=== PATIENT | male | born 1940 | race Caucasian/White ===

== ENCOUNTER 2016-10-10 08:53 | Inpatient (IN) | payer OTHER ==
--- NOTE | 2016-10-10 09:11 | PDOC ---
History of Present Illness - General History Source: Patient, Family (Daughter in law ) Exam Limitations: No Limitations - History of Present Illness Initial Comments: 10/10/16 09:29 The patient is a 76 year old male presenting with daughter in law, with a significant past medical history of an CHF, who presents to the emergency department with shortness of breath for the past 3 weeks. The patient notes that recently arrived from [facility], where he was hospitalized due to CHF for 4 days. Upon discharged and improvement of symptoms the patient came back to the [facility] and has been here for 3 weeks since arrival. He notes that he has not been taking his Lasix medications for the past 4 days because he ran out. He also notes that he experienced mild chest discomfort yesterday that resolved on its own. 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 The patient denies headache and dizziness. Denies fever, chills, nausea, vomit, diarrhea and constipation. Denies dysuria, frequency, urgency and hematuria. Allergies: None Past surgical history: Possible cardiac stents Social history: No alcohol, tobacco or drug use reported PMD - Dr. Vargas <Eduin Buitrago - Last Filed: 10/10/16 10:45> <Sherwin Petersen - Last Filed: 10/10/16 10:55> - General Chief Complaint: Shortness of Breath Stated Complaint: SOB Time Seen by Provider: 10/10/16 09:11 Past History <Eduin Buitrago - Last Filed: 10/10/16 10:45> - Past Medical History Cardiac Disorders: Yes ("enlarged heart") Other medical history: "stent"? - Surgical History Abdominal Surgery: Yes ("hernia?") - Psycho/Social/Smoking Cessation Hx Anxiety: No Suicidal Ideation: No Smoking History: Former smoker Have you smoked in the past 12 months: No If you are a former smoker, when did you quit?: 15 years ago Information on smoking cessation initiated: No Hx Alcohol Use: No Drug/Substance Use Hx: No Substance Use Type: None <Sherwin Petersen - Last Filed: 10/10/16 10:55> - Past Medical History Allergies/Adverse Reactions: Allergies Allergy/AdvReac Type Severity Reaction Status Date / Time No Known Allergies Allergy Verified 10/10/16 08:57 Home Medications: Ambulatory Orders Aspirin [ASA -] 81 mg PO DAILY 10/10/16 Atorvastatin Ca [Lipitor] 20 mg PO HS 10/10/16 Cardiatone 25mg 25 mg PO DAILY 10/10/16 Clopidogrel Bisulfate [Plavix -] 75 mg PO DAILY 10/10/16 Digoxin [Lanoxin -] 0.25 mg PO DAILY 10/10/16 Furosemide [Lasix] 40 mg PO DAILY 10/10/16 Review of Systems - Review of Systems Able to Perform ROS?: Yes Comments:: 10/10/16 09:29 GENERAL/CONSTITUTIONAL: No fever or chills. No weakness. HEAD, EYES, EARS, NOSE AND THROAT: No change in vision. No ear pain or discharge. No sore throat. CARDIOVASCULAR: +Shortness of breath. No chest pain RESPIRATORY: No cough, wheezing, or hemoptysis. GASTROINTESTINAL: No nausea, vomiting, diarrhea or constipation. GENITOURINARY: No dysuria, frequency, or change in urination. MUSCULOSKELETAL: No joint or muscle swelling or pain. No neck or back pain. SKIN: No rash NEUROLOGIC: No headache, vertigo, loss of consciousness, or change in strength/ sensation. ENDOCRINE: No increased thirst. No abnormal weight change HEMATOLOGIC/LYMPHATIC: No anemia, easy bleeding, or history of blood clots. ALLERGIC/IMMUNOLOGIC: No hives or skin allergy. <Eduin Buitrago - Last Filed: 10/10/16 10:45> *Physical Exam - Vital Signs Last Vital Signs Temp Pulse Resp BP Pulse Ox 97.3 F L 48 L 20 129/75 99 10/10/16 08:58 10/10/16 08:58 10/10/16 08:58 10/10/16 08:58 10/10/16 08:58 - Physical Exam Comments: 10/10/16 09:28 GENERAL: Awake, alert, and fully oriented, in no acute distress HEAD: No signs of trauma, normocephalic, atraumatic EYES: PERRLA, EOMI, sclera anicteric, conjunctiva clear ENT: Auricles normal inspection, hearing grossly normal, nares patent, oropharynx clear without exudates. Moist mucosa NECK: +Positive JVD. Normal ROM, supple, no lymphadenopathy, or masses LUNGS: +Rales bilaterally. No distress, speaks full sentences. HEART: Regular rate and rhythm, normal S1 and S2, no murmurs, rubs or gallops, peripheral pulses normal and equal bilaterally. ABDOMEN: Soft, nontender, normoactive bowel sounds. No guarding, no rebound. No masses EXTREMITIES: Normal inspection, Normal range of motion, no edema. No clubbing or cyanosis. NEUROLOGICAL: Cranial nerves II through XII grossly intact. Normal speech, normal gait, no focal sensorimotor deficits SKIN: Warm, Dry, normal turgor, no rashes or lesions noted. <Eduin Buitrago - Last Filed: 10/10/16 10:45> - Vital Signs Last Vital Signs Temp Pulse Resp BP Pulse Ox 97.3 F L 48 L 20 129/75 99 10/10/16 08:58 10/10/16 08:58 10/10/16 08:58 10/10/16 08:58 10/10/16 08:58 <Sherwin Petersen - Last Filed: 10/10/16 10:55> ED Treatment Course - LABORATORY CBC & Chemistry Diagram: 10/10/16 09:36 10/10/16 09:36 - RADIOLOGY Radiograph Interpretation: 10/10/16 10:45 Chest X-Ray Reviewed by: Dr. Isela Mckee Impression: Increased interstitial lung markings without focal infiltrate seen. No prior studies available for comparison to ascertain whether this is chronic in nature. <Eduin Buitrago - Last Filed: 10/10/16 10:45> - LABORATORY CBC & Chemistry Diagram: 10/10/16 09:36 10/10/16 09:36 <Sherwin Petersen - Last Filed: 10/10/16 10:55> *DC/Admit/Observation/Transfer - Attestations Scribe Attestion: 10/10/16 09:28 Documentation prepared by Eduin Buitrago, acting as medical chemist for Sherwin Petersen MD <Eduin Buitrago - Last Filed: 10/10/16 10:45> - Discharge Dispostion Admit: Yes - Attestations Physician Attestion: 10/10/16 09:11 I, Dr. Sherwni Petersen, attest that this document has been prepared under my direction and personally reviewed by me in its entirety. I further attest, that it accurately reflects all work, treatment, procedures and medical decision -making performed by me. <Sherwin Petersen - Last Filed: 10/10/16 10:55> Diagnosis at time of Disposition: Acute on chronic congestive heart failure Qualifiers: Congestive heart failure type: combined Qualified Code(s): I50.43 - Acute on chronic combined systolic (congestive) and diastolic (congestive) heart failure - Discharge Dispostion Condition at time of disposition: Improved
[2016-10-10] MEDS ORDERED: ALBUTEROL SO4 2.5/IPRATROPIUM 0.5 INH SOL 3 ML VIAL.NEB. NEB ONE (09:28)
[2016-10-10] MEDS ORDERED: FUROSEMIDE 40 MG/4 ML INJECTABLE VIAL IVPUSH ONE (09:33)
[2016-10-10 09:57] LABS: BASOPHIL 0.5 % (0-2.0); EOSINOPHIL 3.4 % (0-4.5); MCH 29.2 pg (25.7-33.7); MEAN CELL VOLUME 88.5 fl (80-96); MEAN PLT VOLUME 10.1 fl (7.5-11.1); NEUTROPHILS 64.8 % (42.8-82.8); PLATELET COUNT 175 K/MM3 (134-434); RDW 15.2 % (11.9-15.9); WHITE BLOOD COUNT 9.2 K/mm3 (4.0-10.0)
[2016-10-10] MEDS ORDERED: FUROSEMIDE 40 MG/4 ML INJECTABLE VIAL ONE (10:04)
[2016-10-10 10:40] LABS: INR 1.06 (0.82-1.09); PROTHROMBIN TIME (PATIENT) 11.7 SEC (9.98-11.88)
[2016-10-10 10:43] LABS: ALBUMIN 3.8 g/dl (3.4-5.0); ANION GAP 8 (8-16); BILIRUBIN,TOTAL 0.9 mg/dL (0.2-1.0); CALCIUM 9.1 mg/dL (8.5-10.1); CO2 27 mmol/L (21-32); CREATININE 0.8 mg/dL (0.7-1.3); GLUCOSE,RANDOM 101 mg/dL (74-106); MAGNESIUM 2.2 mg/dL (1.8-2.4); SGOT/AST 17 U/L (15-37); SGPT/ALT 24 U/L (12-78)
[2016-10-10 10:46] LABS: ALK PHOS 99 U/L (45-117); TROPONIN I < 0.02 ng/ml (0.00-0.05)
[2016-10-10] MEDS ORDERED: ACETAMINOPHEN 325 MG TABLET (FP) PO PRN (11:22)
[2016-10-10] MEDS ORDERED: ONDANSETRON 4 MG/2 ML VIAL IVPB PRN (11:22)
--- NOTE | 2016-10-10 11:27 | HP ---
PCP: None CHIEF COMPLAINT: Shortness of breath HISTORY OF PRESENT ILLNESS: This is a 76-year-old man who comes to the ER this morning complaining of shortness of breath. He had been hospitalized in the [place] last month for CHF. He has been in the [place] for the last 3 weeks. He has been becoming more short of breath during that time. He has noted swelling of his legs. He had an episode of chest pain yesterday. He denies fever , chills, cough, palpitations, diaphoresis, urinary frequency, nocturia, orthopnea, paroxysmal nocturnal dyspnea, weight gain. He ran out of his medication 4 days ago. PAST MEDICAL HISTORY CHF CAD PAST SURGICAL HISTORY Cardiac stents Hernia repair Allergies No Known Allergies Allergy (Verified 10/10/16 08:57) HOME MEDICATIONS 3 Medication Instructions Recorded Aspirin [ASA -] 81 mg PO DAILY 10/10/16 Atorvastatin Ca [Lipitor] 20 mg PO HS 10/10/16 Cardiatone 25mg 25 mg PO DAILY 10/10/16 Carvedilol 25 mg PO BID 10/10/16 Clopidogrel Bisulfate [Plavix -] 75 mg PO DAILY 10/10/16 Digoxin [Lanoxin -] 0.25 mg PO DAILY 10/10/16 Furosemide [Lasix] 40 mg PO DAILY 10/10/16 Social History: Smoking: Quit smoking 15 years ago Alcohol: Denies Drugs: Denies Recent Travel: [facility] 1 month ago Family History: Denies REVIEW OF SYSTEMS CONSTITUTIONAL: Absent: fever, chills, diaphoresis, generalized weakness, malaise, loss of appetite, weight change HEENT: Absent: rhinorrhea, nasal congestion, throat pain, throat swelling, difficulty swallowing, mouth swelling, ear pain, eye pain, visual changes CARDIOVASCULAR: Present: chest pain, peripheral edema. Absent: syncope, palpitations, lightheadedness RESPIRATORY: Present: shortness of breath. Absent: cough, orthopnea, wheezing, stridor, hemoptysis GASTROINTESTINAL: Absent: abdominal pain, abdominal distension, nausea, vomiting , diarrhea, constipation, melena, hematochezia GENITOURINARY: Absent: dysuria, frequency, urgency, hesitancy, hematuria, flank pain MUSCULOSKELETAL: Absent: myalgia, arthralgia, joint swelling, back pain, neck pain SKIN: Absent: rash, itching, pallor HEMATOLOGIC/IMMUNOLOGIC: Absent: easy bleeding, easy bruising, lymphadenopathy, frequent infections ENDOCRINE: Absent: unexplained weight gain, unexplained weight loss, heat intolerance, cold intolerance NEUROLOGIC: Absent: headache, focal weakness, paresthesias, dizziness, unsteady gait, seizure, mental status changes, bladder or bowel incontinence PSYCHIATRIC: Absent: anxiety, depression, suicidal or homicidal ideation, hallucinations. PHYSICAL EXAMINATION Vital Signs Period Temp Pulse Resp BP Sys/Paris Pulse Ox Last 24 Hr 97.3 F 48-70 18-20 113-129/72-75 99-99 GENERAL: Awake, alert, and fully oriented, in no acute distress. HEAD: Normal with no signs of trauma. EYES: Pupils equal, round and reactive to light, extraocular movements intact, sclerae anicteric, conjunctivae clear. EARS, NOSE, THROAT: Ears normal, nares patent, oropharynx clear without exudates. Moist mucous membranes. NECK: Normal range of motion, supple without lymphadenopathy, JVD, or masses. LUNGS: Few crackles bilaterally. No accessory muscle use. HEART: Regular rate and rhythm, normal S1 and S2 without murmur, rub or gallop. ABDOMEN: Soft, nontender, not distended, normoactive bowel sounds, no guarding, no rebound, no masses. No hepatomegaly or splenomegaly. MUSCULOSKELETAL: Normal range of motion at all joints. No bony deformities or tenderness. No CVA tenderness. UPPER EXTREMITIES: 2+ pulses, warm, well-perfused. No cyanosis. No clubbing. No peripheral edema. LOWER EXTREMITIES: 2+ pulses, warm, well-perfused. No calf tenderness. Trace peripheral edema. NEUROLOGICAL: Cranial nerves II-XII intact. Normal speech. Gait not observed. PSYCHIATRIC: Cooperative. Good eye contact. Appropriate mood and affect. SKIN: Warm, dry, normal turgor, no rashes or lesions noted, normal capillary refill. Laboratory Tests 10/10/16 10/10/16 10/10/16 09:36 09:36 09:36 WBC 9.2 RBC 5.01 Hgb 14.6 Hct 44.4 MCV 88.5 MCHC 33.0 RDW 15.2 Plt Count 175 MPV 10.1 Neutrophils % 64.8 Lymphocytes % 24.2 Monocytes % 7.1 Eosinophils % 3.4 Basophils % 0.5 INR 1.06 Sodium 142 Potassium 4.3 Chloride 107 Carbon Dioxide 27 Anion Gap 8 BUN 15 Creatinine 0.8 Creat Clearance w eGFR > 60 Random Glucose 101 Calcium 9.1 Magnesium 2.2 Total Bilirubin 0.9 AST 17 ALT 24 Alkaline Phosphatase 99 Creatine Kinase 71 Troponin I < 0.02 B-Natriuretic Peptide 1524.21 H Total Protein 7.0 Albumin 3.8 Digoxin 10/10/16 09:36 WBC RBC Hgb Hct MCV MCHC RDW Plt Count MPV Neutrophils % Lymphocytes % Monocytes % Eosinophils % Basophils % INR Sodium Potassium Chloride Carbon Dioxide Anion Gap BUN Creatinine Creat Clearance w eGFR Random Glucose Calcium Magnesium Total Bilirubin AST ALT Alkaline Phosphatase Creatine Kinase Troponin I B-Natriuretic Peptide Total Protein Albumin Digoxin 0.1540 L EKG: Sinus rhythm, rate 73. PVCs. LAD. LVH with repolarization. Chest x-ray: Increased interstitial markings bilaterally. ASSESSMENT/PLAN: This is a 76-year-old man with a history of CAD, stents, CHF who presented to the ER with worsening shortness of breath. He ran out of medications 4 days ago. He was found to have BNP 1524, dig level 0.154. CXR shows increased interstitial markings bilaterally. 1. Acute on chronic heart failure, likely systolic - Continue Lasix IV - Daily weight - Monitor intake and output - Echocardiogram - Continue Coreg, Ramipril, Aldactone, Digoxin - Cardiology consult 2. Chest pain - Monitor on telemetry - Serial troponins 3. CAD, history of stents - Continue aspirin, Plavix, Coreg, Lipitor Problem List - Problem (1) Acute on chronic heart failure Code(s): I50.9 - HEART FAILURE, UNSPECIFIED (2) CAD (coronary artery disease) Code(s): I25.10 - ATHSCL HEART DISEASE OF [place] CORONARY ARTERY W/O ANG PCTRS (3) Chest pain Code(s): R07.9 - CHEST PAIN, UNSPECIFIED Visit type - Emergency Visit Emergency Visit: Yes ED Registration Date: 10/10/16 Care time: The patient presented to the Emergency Department on the above date and was hospitalized for further evaluation of their emergent condition. - New Patient This patient is new to me today: Yes Date on this admission: 10/10/16 - Critical Care Critical Care patient: No
--- NOTE | 2016-10-10 11:51 | EKG ---
Test Reason : Blood Pressure : / mmHG Vent. Rate : 073 BPM Atrial Rate : 073 BPM P-R Int : 176 ms QRS Dur : 144 ms QT Int : 426 ms P-R-T Axes : 031 -48 078 degrees QTc Int : 469 ms SINUS RHYTHM WITH OCCASIONAL PREMATURE VENTRICULAR COMPLEXES POSSIBLE LEFT ATRIAL ENLARGEMENT LEFT AXIS DEVIATION LEFT VENTRICULAR HYPERTROPHY WITH QRS WIDENING AND REPOLARIZATION ABNORMALITY ABNORMAL ECG NO PREVIOUS ECGS AVAILABLE Confirmed by SHEKHAR MOTT, CHING ([id number]) on 10/10/2016 11:50:43 AM Referred By: Confirmed By:CHING CORRIGAN MD
[2016-10-10] MEDS ORDERED: DIGOXIN 0.25 MG TABLET (FP) ONE (13:05)
[2016-10-10] MEDS ORDERED: CARVEDILOL 12.5 MG TABLET (FP) ONE (13:05)
[2016-10-10] MEDS: CARVEDILOL 25 MG TABLET (FP) PO SCH ×2 (13:14→21:15)
[2016-10-10] MEDS: DIGOXIN 0.25 MG TABLET (FP) PO SCH (13:14)
[2016-10-10] MEDS ORDERED: RAMIPRIL 5 MG CAPSULE (FP) ONE (13:19)
[2016-10-10] MEDS ORDERED: SPIRONOLACTONE 25 MG TABLET (FP) ONE (13:19)
[2016-10-10] MEDS: SPIRONOLACTONE 25 MG TABLET (FP) PO SCH (13:22)
[2016-10-10] MEDS: RAMIPRIL 5 MG CAPSULE (FP) PO SCH ×2 (13:23→21:13)
[2016-10-10 14:02] VITALS: BMI 28.4
[2016-10-10] MEDS ORDERED: PNEUMOC 13-VAL CONJ-DIP CRM/PF 0.5 ML DISP.SYRIN IM ONE (18:00)
[2016-10-10] MEDS ORDERED: HEPARIN NA (PORCINE) 5,000 UNITS/ML 1ML VIAL SQ SCH (18:00)
[2016-10-10] MEDS ORDERED: INFLUENZA VACCINE 45 MCG/0.5 ML (MDV 16-17) IM ONE (18:00)
[2016-10-10] MEDS: ATORVASTATIN CA 20 MG TABLET (FP) PO SCH (21:13)
[2016-10-10 21:59] LABS: TROPONIN I < 0.02 ng/ml (0.00-0.05)
[2016-10-11] MEDS: HEPARIN NA (PORCINE) 5,000 UNITS/ML 1ML VIAL SQ SCH ×3 (06:40→22:06)
[2016-10-11 07:25] LABS: BASOPHIL 0.7 % (0-2.0); EOSINOPHIL 4.5 % (0-4.5); MCH 29.1 pg (25.7-33.7); MCHC 33.1 g/dl (32.0-35.9); MEAN CELL VOLUME 88.1 fl (80-96); MEAN PLT VOLUME 10.1 fl (7.5-11.1); NEUTROPHILS 56.6 % (42.8-82.8); PLATELET COUNT 170 K/MM3 (134-434); RDW 15.3 % (11.9-15.9); WHITE BLOOD COUNT 6.3 K/mm3 (4.0-10.0)
[2016-10-11 09:37] LABS: ANION GAP 13 (8-16); CALCIUM 8.8 mg/dL (8.5-10.1); CO2 22 mmol/L (21-32); CREATININE 0.8 mg/dL (0.7-1.3); GLUCOSE,RANDOM 97 mg/dL (74-106); MAGNESIUM 2.1 mg/dL (1.8-2.4)
--- NOTE | 2016-10-11 09:40 | CON.CARD ---
Consult Consult Specialty:: Cardiology Reason for Consultation:: chest pain - History of Present Illness History of Present Illness: The patient is a 76 year old male presenting with daughter in law, with a significant past medical history of an CHF, who presents to the emergency department with shortness of breath for the past 3 weeks. The patient notes that recently arrived from [facility], where he was hospitalized due to CHF for 4 days. Upon discharged and improvement of symptoms the patient came back to the [facility] and has been here for 3 weeks since arrival. He notes that he has not been taking his Lasix medications for the past 4 days because he ran out. He also notes that he experienced mild chest discomfort yesterday that resolved on its own. 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 The patient denies headache and dizziness. Denies fever, chills, nausea, vomit, diarrhea and constipation. Denies dysuria, frequency, urgency and hematuria. Allergies: None Past surgical history: Possible cardiac stents Social history: No alcohol, tobacco or drug use reported PMD - Dr. Vargas - History Source History Provided By: Patient, Family Member, Medical Record - Past Medical History Cardio/Vascular: Yes: CAD, HTN - Alcohol/Substance Use Hx Alcohol Use: No - Smoking History Smoking history: Former smoker Have you smoked in the past 12 months: No If you are a former smoker, when did you quit?: 15 years ago Home Medications - Allergies Allergies/Adverse Reactions: Allergies Allergy/AdvReac Type Severity Reaction Status Date / Time No Known Allergies Allergy Verified 10/10/16 08:57 - Home Medications Home Medications: Ambulatory Orders Aspirin [ASA -] 81 mg PO DAILY 10/10/16 Atorvastatin Ca [Lipitor] 20 mg PO HS 10/10/16 Carvedilol 25 mg PO BID 10/10/16 Clopidogrel Bisulfate [Plavix -] 75 mg PO DAILY 10/10/16 Digoxin [Lanoxin -] 0.25 mg PO DAILY 10/10/16 Furosemide [Lasix] 40 mg PO DAILY 10/10/16 Ramipril 10 mg PO BID 10/10/16 Spironolactone [Aldactone] 25 mg PO DAILY 10/10/16 Review of Systems - Review of Systems Constitutional: reports: No Symptoms Eyes: reports: No Symptoms HENT: reports: No Symptoms Neck: reports: No Symptoms Cardiovascular: reports: Chest Pain, Shortness of Breath Gastrointestinal: reports: No Symptoms Genitourinary: reports: No Symptoms Breasts: reports: No Symptoms Reported Musculoskeletal: reports: No Symptoms Integumentary: reports: No Symptoms Neurological: reports: No Symptoms Endocrine: reports: No Symptoms Hematology/Lymphatic: reports: No Symptoms Psychiatric: reports: No Symptoms Vital Signs: Vital Signs Temperature 98.5 F 10/11/16 06:00 Pulse Rate 58 L 10/11/16 06:00 Respiratory Rate 20 10/11/16 06:00 Blood Pressure 108/60 10/11/16 06:00 O2 Sat by Pulse Oximetry (%) 98 10/10/16 21:00 Constitutional: Yes: Well Nourished, No Distress, Calm Eyes: Yes: WNL, Conjunctiva Clear, EOM Intact HENT: Yes: WNL, Atraumatic, Normocephalic Neck: Yes: WNL, Supple, Trachea Midline Respiratory: Yes: WNL, Regular, CTA Bilaterally Gastrointestinal: Yes: WNL, Normal Bowel Sounds Renal/: Yes: WNL Cardiovascular: Yes: WNL, Regular Rate and Rhythm Musculoskeletal: Yes: WNL Extremities: Yes: WNL Integumentary: Yes: WNL Neurological: Yes: WNL, Alert, Oriented ...Motor Strength: WNL Psychiatric: Yes: WNL, Alert, Oriented - Other Data Labs, Other Data: CBC, BMP 10/11/16 05:35 10/11/16 05:35 INR, PTT INR 1.06 (0.82-1.09) 10/10/16 09:36 Troponin, BNP 10/10/16 10/11/16 20:40 06:30 Troponin I < 0.02 Cancelled Troponin, BNP 10/10/16 10/11/16 20:40 06:30 Troponin I < 0.02 Cancelled Laboratory Tests 10/10/16 10/10/16 10/10/16 09:36 09:36 09:36 WBC 9.2 RBC 5.01 Hgb 14.6 Hct 44.4 MCV 88.5 MCHC 33.0 RDW 15.2 Plt Count 175 MPV 10.1 Neutrophils % 64.8 Lymphocytes % 24.2 Monocytes % 7.1 Eosinophils % 3.4 Basophils % 0.5 INR 1.06 Sodium 142 Potassium 4.3 Chloride 107 Carbon Dioxide 27 Anion Gap 8 BUN 15 Creatinine 0.8 Creat Clearance w eGFR > 60 Random Glucose 101 Calcium 9.1 Magnesium 2.2 Total Bilirubin 0.9 AST 17 ALT 24 Alkaline Phosphatase 99 Creatine Kinase 71 Troponin I < 0.02 B-Natriuretic Peptide 1524.21 H Total Protein 7.0 Albumin 3.8 Digoxin 10/10/16 10/10/16 10/11/16 09:36 20:40 05:35 WBC 6.3 D RBC 4.57 Hgb 13.3 Hct 40.3 MCV 88.1 MCHC 33.1 RDW 15.3 Plt Count 170 MPV 10.1 Neutrophils % 56.6 Lymphocytes % 29.5 D Monocytes % 8.7 Eosinophils % 4.5 Basophils % 0.7 INR Sodium Potassium Chloride Carbon Dioxide Anion Gap BUN Creatinine Creat Clearance w eGFR Random Glucose Calcium Magnesium Total Bilirubin AST ALT Alkaline Phosphatase Creatine Kinase 50 Troponin I < 0.02 B-Natriuretic Peptide Total Protein Albumin Digoxin 0.1540 L 10/11/16 10/11/16 05:35 06:30 WBC RBC Hgb Hct MCV MCHC RDW Plt Count MPV Neutrophils % Lymphocytes % Monocytes % Eosinophils % Basophils % INR Sodium 144 Potassium 4.0 Chloride 109 H Carbon Dioxide 22 Anion Gap 13 BUN 17 Creatinine 0.8 Creat Clearance w eGFR Random Glucose 97 Calcium 8.8 Magnesium 2.1 Total Bilirubin AST ALT Alkaline Phosphatase Creatine Kinase 43 Cancelled Troponin I < 0.02 Cancelled B-Natriuretic Peptide Total Protein Albumin Digoxin Imaging - Results EKG: Image Reviewed (sr incomplete lbbb) Problem List - Problems (1) Acute on chronic heart failure Code(s): I50.9 - HEART FAILURE, UNSPECIFIED (2) CAD (coronary artery disease) Code(s): I25.10 - ATHSCL HEART DISEASE OF [place] CORONARY ARTERY W/O ANG PCTRS (3) CHF exacerbation Code(s): I50.9 - HEART FAILURE, UNSPECIFIED Qualifiers: Congestive heart failure type: combined (4) Chest pain Code(s): R07.9 - CHEST PAIN, UNSPECIFIED Assessment/Plan chf systolic severely dilated lv extremely poor informant ( son denies any heart problems /stents mis etc) htn hld moderate mr cont iv lasix may need c.cath/ICD when hemodynamicaly stable
[2016-10-11] MEDS: DIGOXIN 0.25 MG TABLET (FP) PO SCH (09:45)
[2016-10-11] MEDS: ASPIRIN 81 MG CHEWABLE TABLETS PO SCH (09:45)
[2016-10-11] MEDS: RAMIPRIL 5 MG CAPSULE (FP) PO SCH ×2 (09:46→22:04)
[2016-10-11] MEDS: CLOPIDOGREL BISULFATE 75 MG TABLET (FP) PO SCH (09:47)
[2016-10-11] MEDS: SPIRONOLACTONE 25 MG TABLET (FP) PO SCH (09:47)
[2016-10-11] MEDS: FUROSEMIDE 40 MG/4 ML INJECTABLE VIAL IVPUSH SCH (09:47)
[2016-10-11] MEDS: CARVEDILOL 25 MG TABLET (FP) PO SCH ×2 (09:47→22:04)
[2016-10-11 10:23] LABS: TROPONIN I < 0.02 ng/ml (0.00-0.05)
--- NOTE | 2016-10-11 13:21 | PN ---
Physical Exam: SUBJECTIVE: Patient seen and examined on tele. He says he is feeling better today, he is laying flat w/o any respiratory distress, no cough, no tachypnea, son at bedside. OBJECTIVE: Vital Signs Period Temp Pulse Resp BP Sys/Paris Pulse Ox Last 24 Hr 97.6 F-98.8 F 57-76 18-20 103-114/49-77 91-99 PE Neuro: alert, awake, cn 2-12intact Pulm: course bases otherwise clear CV: s1 s2 rrr no mrg Abd: s nt nd + bs Ext: no le edema, warm MSK: R posterior thigh tenderness Laboratory Results - last 24 hr 10/10/16 10/11/16 10/11/16 20:40 05:35 05:35 WBC 6.3 D RBC 4.57 Hgb 13.3 Hct 40.3 MCV 88.1 MCHC 33.1 RDW 15.3 Plt Count 170 MPV 10.1 Neutrophils % 56.6 Lymphocytes % 29.5 D Monocytes % 8.7 Eosinophils % 4.5 Basophils % 0.7 Sodium 144 Potassium 4.0 Chloride 109 H Carbon Dioxide 22 Anion Gap 13 BUN 17 Creatinine 0.8 Random Glucose 97 Calcium 8.8 Magnesium 2.1 Creatine Kinase 50 43 Troponin I < 0.02 < 0.02 10/10/16 09:36 Digoxin 0.1540 L Active Medications Generic Name Dose Route Start Last Admin Trade Name Freq PRN Reason Stop Dose Admin Acetaminophen 650 mg 10/10/16 11:22 Tylenol - PO Q4H PRN FEVER OR PAIN Aspirin 81 mg 10/11/16 10:00 10/11/16 09:45 Asa - PO 81 mg DAILY SIMÓN Administration Atorvastatin Calcium 20 mg 10/10/16 22:00 10/10/16 21:13 Lipitor - PO 20 mg HS SIMÓN Administration Carvedilol 25 mg 10/10/16 12:15 10/11/16 09:47 Coreg - PO 25 mg BID SIMÓN Administration Clopidogrel Bisulfate 75 mg 10/11/16 10:00 10/11/16 09:47 Plavix - PO 75 mg DAILY SIMÓN Administration Digoxin 0.25 mg 10/10/16 11:30 10/11/16 09:45 Lanoxin - PO 0.25 mg DAILY SIMÓN Administration Furosemide 40 mg 10/11/16 10:00 10/11/16 09:47 Lasix Injection - IVPUSH 40 mg DAILY SIMÓN Administration Heparin Sodium (Porcine) 5,000 unit 10/11/16 06:00 10/11/16 06:40 Heparin - SQ 5,000 unit TID SIMÓN Administration Ondansetron HCl 4 mg 10/10/16 11:22 Zofran Injection IVPB Q6H PRN NAUSEA Ramipril 10 mg 10/10/16 12:15 10/11/16 09:46 Altace - PO 10 mg BID SIMÓN Administration Spironolactone 25 mg 10/10/16 11:30 10/11/16 09:47 Aldactone - PO 25 mg DAILY SIMÓN Administration Imaging: - CXR 10/11: Increased interstitial markings bilaterally Assessment: 76 year old male with pmhx of CAD, stents, CHF admitted with worsening shortness of breath. He ran out of medications 4 days ago. He was found to have BNP 1524, dig level 0.154. CXR shows increased interstitial markings bilaterally. 1. Systolic acute on chronic HF - ECHO shows severely dilated LV, LVSF severely reduced, global hypokinesis of LV, mild TR, mod MR - Continue IV lasix 40mg daily - Coreg 25mg BID - Ramipril 10mg BID - Spironolactone 25mg daily - Digoxin 0.25mg - Daily weights, I's/O's - When stable will likely need cath and ICD per cardiology 2. Chest pain - r/o [place] trops x3 negative 3. CAD, history of stents - Continue ASA, Plavix,Lipitor 4. DVT ppx - Heparin sq q8 Visit type - Emergency Visit Emergency Visit: Yes ED Registration Date: 10/10/16 Care time: The patient presented to the Emergency Department on the above date and was hospitalized for further evaluation of their emergent condition. - New Patient This patient is new to me today: Yes Date on this admission: 10/11/16 - Critical Care Critical Care patient: No
[2016-10-11 15:33] LABS: TROPONIN I < 0.02 ng/ml (0.00-0.05)
[2016-10-11] MEDS: ATORVASTATIN CA 20 MG TABLET (FP) PO SCH (22:03)
[2016-10-11 22:14] LABS: TROPONIN I < 0.02 ng/ml (0.00-0.05)
[2016-10-12] MEDS: HEPARIN NA (PORCINE) 5,000 UNITS/ML 1ML VIAL SQ SCH ×3 (06:43→21:51)
--- NOTE | 2016-10-12 08:02 | PN ---
Progress Note, Physician Chief Complaint: Pt A&Ox3; no chest pain or dyspnea. History of Present Illness: The patient is a 76 year old male presenting with daughter in law, with a significant past medical history of CHF, who presents to the emergency department with shortness of breath for the past 3 weeks. The patient notes that recently arrived from [facility], where he was hospitalized due to CHF for 4 days. Upon discharged and improvement of symptoms the patient came back to the [facility]. He notes that he has not been taking his Lasix for the past 4 days because he ran out. He also notes that he experienced mild chest discomfort yesterday that resolved on its own. 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 The patient denies headache and dizziness. Denies fever, chills, nausea, vomit, diarrhea and constipation. Denies dysuria, frequency, urgency and hematuria. Allergies: None Past surgical history: Possible cardiac stents Social history: No alcohol, tobacco or drug use reported PMD - Dr. Vargas - Current Medication List Current Medications: Active Medications Acetaminophen (Tylenol -) 650 mg PO Q4H PRN PRN Reason: FEVER OR PAIN Aspirin (Asa -) 81 mg PO DAILY [facility] Last Admin: 10/11/16 09:45 Dose: 81 mg Atorvastatin Calcium (Lipitor -) 20 mg PO HS [facility] Last Admin: 10/11/16 22:03 Dose: 20 mg Carvedilol (Coreg -) 25 mg PO BID [facility] Last Admin: 10/11/16 22:04 Dose: 25 mg Clopidogrel Bisulfate (Plavix -) 75 mg PO DAILY [facility] Last Admin: 10/11/16 09:47 Dose: 75 mg Digoxin (Lanoxin -) 0.25 mg PO DAILY [facility] Last Admin: 10/11/16 09:45 Dose: 0.25 mg Furosemide (Lasix Injection -) 40 mg IVPUSH DAILY [facility] Last Admin: 10/11/16 09:47 Dose: 40 mg Heparin Sodium (Porcine) (Heparin -) 5,000 unit SQ TID [facility] Last Admin: 10/12/16 06:43 Dose: 5,000 unit Ondansetron HCl (Zofran Injection) 4 mg IVPB Q6H PRN PRN Reason: NAUSEA Ramipril (Altace -) 10 mg PO BID [facility] Last Admin: 10/11/16 22:04 Dose: 10 mg Spironolactone (Aldactone -) 25 mg PO DAILY [facility] Last Admin: 10/11/16 09:47 Dose: 25 mg - Objective Vital Signs: Vital Signs Temperature 98 F 10/12/16 01:00 Pulse Rate 57 L 10/12/16 05:00 Respiratory Rate 20 10/12/16 05:00 Blood Pressure 103/61 10/12/16 05:00 O2 Sat by Pulse Oximetry (%) 96 10/11/16 21:00 Constitutional: Yes: Calm Eyes: Yes: WNL HENT: Yes: WNL Neck: Yes: WNL Cardiovascular: Yes: WNL Respiratory: Yes: Regular Genitourinary: No: Anuria Breast(s): Yes: WNL Musculoskeletal: Yes: WNL Extremities: Yes: WNL Edema: No Peripheral Pulses WNL: No Peripheral Pulses: Left Doralis Pedis: 1+, Right Dorsalis Pedis: 1+ Integumentary: Yes: WNL Neurological: Yes: Alert, Oriented Labs: CBC, BMP 10/11/16 05:35 INR, PTT INR 1.06 (0.82-1.09) 10/10/16 09:36 Abnormal Lab Results 10/11/16 10/12/16 05:35 05:35 Chloride 109 H BUN 26 H D Problem List - Problems (1) Acute on chronic systolic (congestive) heart failure Assessment/Plan: Continue Coreg, Aldactone, lisinopril, digoxin, and furosemide. On ASA and clopidgrel. ECHO: severely dilated LV; severely reduced LVEF. Will require right and left-heart coronry angiogram, and evaluation for ICD. This wa discussed with pt and son; he was apparently told he would need this workup and therapy in the [place] weeks ago. F/u TSH and lipids. Code(s): I50.23 - ACUTE ON CHRONIC SYSTOLIC (CONGESTIVE) HEART FAILURE
[2016-10-12 08:31] LABS: CALCIUM 8.9 mg/dL (8.5-10.1); CREATININE 0.9 mg/dL (0.7-1.3)
[2016-10-12] MEDS: RAMIPRIL 5 MG CAPSULE (FP) PO SCH ×2 (09:24→21:47)
[2016-10-12] MEDS: ASPIRIN 81 MG CHEWABLE TABLETS PO SCH (09:24)
[2016-10-12] MEDS: CLOPIDOGREL BISULFATE 75 MG TABLET (FP) PO SCH (09:24)
[2016-10-12] MEDS: CARVEDILOL 25 MG TABLET (FP) PO SCH ×2 (09:25→21:47)
[2016-10-12] MEDS: FUROSEMIDE 40 MG/4 ML INJECTABLE VIAL IVPUSH SCH (09:25)
[2016-10-12] MEDS: SPIRONOLACTONE 25 MG TABLET (FP) PO SCH (09:25)
[2016-10-12] MEDS: DIGOXIN 0.25 MG TABLET (FP) PO SCH (09:25)
[2016-10-12 10:54] LABS: THYROID STIMULATING HORMONE 4.05 uIU/ml (0.358-3.74)
--- NOTE | 2016-10-12 11:21 | PN ---
Physical Exam: SUBJECTIVE: Patient seen and examined on tele. He says he feels fine. Explained heart function to him and his son and purpose of transfer. He said he has a stent from a cath in [facility]. OBJECTIVE: Vital Signs Period Temp Pulse Resp BP Sys/Paris Pulse Ox Last 24 Hr 98 F-98.2 F 57-76 18-20 100-119/52-61 96 PE Neuro: alert, awake, cn 2-12intact Pulm: CTAB CV: s1 s2 rrr no mrg Abd: s nt nd + bs Ext: no le edema, warm Laboratory Results - last 24 hr 10/11/16 10/11/16 10/12/16 14:35 20:15 05:35 Sodium 142 Potassium 4.3 Chloride 105 Carbon Dioxide 27 D Anion Gap 10 BUN 26 H D Creatinine 0.9 Random Glucose 98 Calcium 8.9 Creatine Kinase 50 52 Troponin I < 0.02 < 0.02 Triglycerides 111 Cholesterol 175 Total LDL Cholesterol 122 H HDL Cholesterol 44 TSH 4.05 H 10/12/16 05:35 Free T4 1.07 Active Medications Generic Name Dose Route Start Last Admin Trade Name Freq PRN Reason Stop Dose Admin Acetaminophen 650 mg 10/10/16 11:22 Tylenol - PO Q4H PRN FEVER OR PAIN Aspirin 81 mg 10/11/16 10:00 10/12/16 09:24 Asa - PO 81 mg DAILY [facility] Administration Atorvastatin Calcium 20 mg 10/10/16 22:00 10/11/16 22:03 Lipitor - PO 20 mg HS [facility] Administration Carvedilol 25 mg 10/10/16 12:15 10/12/16 09:25 Coreg - PO 25 mg BID [facility] Administration Clopidogrel Bisulfate 75 mg 10/11/16 10:00 10/12/16 09:24 Plavix - PO 75 mg DAILY [facility] Administration Digoxin 0.25 mg 10/10/16 11:30 10/12/16 09:25 Lanoxin - PO 0.25 mg DAILY [facility] Administration Furosemide 40 mg 10/11/16 10:00 10/12/16 09:25 Lasix Injection - IVPUSH 40 mg DAILY [facility] Administration Heparin Sodium (Porcine) 5,000 unit 10/11/16 06:00 10/12/16 06:43 Heparin - SQ 5,000 unit TID [facility] Administration Ondansetron HCl 4 mg 10/10/16 11:22 Zofran Injection IVPB Q6H PRN NAUSEA Ramipril 10 mg 10/10/16 12:15 10/12/16 09:24 Altace - PO 10 mg BID [facility] Administration Spironolactone 25 mg 10/10/16 11:30 10/12/16 09:25 Aldactone - PO 25 mg DAILY [facility] Administration Imaging: - ECHO 10/10: severely dilated LV, LVSF severely reduced, global hypokinesis of LV, mild TR, mod MR Assessment: 76 year old male with pmhx of CAD, stents, CHF admitted with worsening shortness of breath. He ran out of medications 4 days ago. He was found to have BNP 1524, dig level 0.154. CXR shows increased interstitial markings bilaterally. 1. Systolic acute on chronic HF - Continue IV lasix 40mg daily - Coreg 25mg BID - Ramipril 10mg BID - Spironolactone 25mg daily - Digoxin 0.25mg - Elevated TSH, however T4 wnl - Daily weights, I's/O's 2. LVSF severely reduced - Will need right and left heart cath - D/w Cardiology, will arrange for transfer tomorrow to [place] 3. Chest pain - r/o [place] trops x3 negative 4. CAD, history of stents - Continue ASA, Plavix,Lipitor 5. DVT ppx - Heparin sq q8 Visit type - Emergency Visit Emergency Visit: Yes ED Registration Date: 10/10/16 Care time: The patient presented to the Emergency Department on the above date and was hospitalized for further evaluation of their emergent condition. - New Patient This patient is new to me today: No - Critical Care Critical Care patient: No
[2016-10-12 11:37] LABS: FREE T4 1.07 ng/dl (0.76-1.16)
[2016-10-12] MEDS: ATORVASTATIN CA 20 MG TABLET (FP) PO SCH (21:47)
[2016-10-13] MEDS: HEPARIN NA (PORCINE) 5,000 UNITS/ML 1ML VIAL SQ SCH (06:02)
--- NOTE | 2016-10-13 07:40 | DS ---
Physical Exam: SUBJECTIVE: Patient seen and examined. States no SOB, chest pain, palpitations. Denies dyspnea while at rest or walking short distances. OBJECTIVE: Vital Signs Period Temp Pulse Resp BP Sys/Paris Pulse Ox Last 24 Hr 97.4 F-98.6 F 53-64 18-22 100-135/53-72 96-96 PHYSICAL EXAM GENERAL: The patient is awake, alert, and fully oriented, in no acute distress. HEAD: Normal with no signs of trauma. EYES: PERRL, extraocular movements intact, sclera anicteric, conjunctiva clear. ENT: Ears normal, nares patent, oropharynx clear without exudates, moist mucous membranes. NECK: Trachea midline, full range of motion, supple. LUNGS: Breath sounds equal, clear to auscultation bilaterally, no wheezes, no crackles, no accessory muscle use. HEART: Regular rate and rhythm, S1, S2 without murmur, rub or gallop. ABDOMEN: Soft, nontender, nondistended, normoactive bowel sounds, no guarding, no rebound, no hepatosplenomegaly, no masses. EXTREMITIES: 2+ pulses, warm, well-perfused, trace edema bilaterally. No calf tenderness. NEUROLOGICAL: Cranial nerves II through XII grossly intact. Normal speech, gait not observed. PSYCH: Normal mood, normal affect. SKIN: Warm, dry, normal turgor, no rashes or lesions noted. LABS Laboratory Results - last 24 hr 10/12/16 10/12/16 10/12/16 05:35 06:00 06:00 Sodium 142 Potassium 4.3 Chloride 105 Carbon Dioxide 27 D Anion Gap 10 BUN 26 H D Creatinine 0.9 Random Glucose 98 Calcium 8.9 Triglycerides 111 Cancelled Cholesterol 175 Cancelled Total LDL Cholesterol 122 H Cancelled HDL Cholesterol 44 Cancelled TSH 4.05 H Cancelled Free T4 1.07 HOSPITAL COURSE: 76 year old M with PMH CHF, CAD, ?stent placement, and hernia repair admitted to hospital 10/10 after presenting with c/o SOB, swelling in legs , and one episode of chest pain the day before. BMP 1549 on admission. Troponins x 4 negative. Pt diuresed with IV Lasix, now reporting improved symptom relief. Transfer to [facility] for cardiac cath. Imaging: Echo 10/10/16: severely dilated and hypokinetic LV, mod MR, mild TR, mild AR, estimated EF 37%. EKG 10/10/16: NSR rate 73 with occasional PVCs and widened QRS interval. CXR 10/10/16: Mild cardiomegaly and pulmonary congestion noted. Plan: 1. Systolic Acute on Chronic HF - continue Aldactone 25mg PO daily - continue Lasix 40mg PO daily - continue Carvedilol 25mg PO daily - continue Ramipril 10mg PO daily - continue Digoxin 0.25mg PO daily - right and left heart cath today 10/[address] [facility] 2. CAD - continue ASA 81mg PO daily - continue Plavix 75mg PO daily 3. HLD - continue Atorvastatin 25mg PO qhs Condition: Stable Disposition: Transfer to [facility] for right and left heart cath and possible ICD placement. Date of Admission:10/10/16 Date of Discharge: 10/13/16 Minutes to complete discharge: 35 Discharge Summary Reason For Visit: ACUTE ON CHRONIC CHF Current Active Problems Acute on chronic heart failure (Acute) Acute on chronic systolic (congestive) heart failure (Acute) CAD (coronary artery disease) (Acute) CHF exacerbation (Acute) Chest pain (Acute) Condition: Guarded - Instructions Referrals: Chris Cabrales MD [Staff Physician] - Roni Gonzalez MD [Staff Physician] - Disposition: TRANSFER ACUTE CARE/OTHER HOSP - Home Medications Comprehensive Discharge Medication List: Ambulatory Orders Aspirin [ASA -] 81 mg PO DAILY 10/10/16 Atorvastatin Ca [Lipitor] 20 mg PO HS 10/10/16 Carvedilol 25 mg PO BID 10/10/16 Clopidogrel Bisulfate [Plavix -] 75 mg PO DAILY 10/10/16 Digoxin [Lanoxin -] 0.25 mg PO DAILY 10/10/16 Furosemide [Lasix] 40 mg PO DAILY 10/10/16 Ramipril 10 mg PO BID 10/10/16 Spironolactone [Aldactone] 25 mg PO DAILY 10/10/16 This patient is new to me today: Yes Date on this admission: 10/13/16 Emergency Visit: Yes ED Registration Date: 10/10/16 Care time: The patient presented to the Emergency Department on the above date and was hospitalized for further evaluation of their emergent condition. Critical Care patient: No - Discharge Referral Referred to [facility] Yes Physician Referral: Chris Genao MD ([facility])
[2016-10-13 08:24] VITALS: BP 104/78; TEMP 98.6
[2016-10-13] MEDS: ASPIRIN 81 MG CHEWABLE TABLETS PO SCH (08:28)
[2016-10-13] MEDS: DIGOXIN 0.25 MG TABLET (FP) PO SCH (08:29)
[2016-10-13] MEDS: RAMIPRIL 5 MG CAPSULE (FP) PO SCH (08:29)
[2016-10-13] MEDS: SPIRONOLACTONE 25 MG TABLET (FP) PO SCH (08:29)
[2016-10-13] MEDS: CARVEDILOL 25 MG TABLET (FP) PO SCH (08:29)
[2016-10-13] MEDS: CLOPIDOGREL BISULFATE 75 MG TABLET (FP) PO SCH (08:29)
[2016-10-13 08:30] VITALS: PULSE 60
--- NOTE | 2016-10-13 08:59 | PN ---
Progress Note, Physician Chief Complaint: Pt A&Ox3; no chest pain or dyspnea. No PND or orthopnea last night. History of Present Illness: The patient is a 76 year old male (fina. [place] [employer]) presenting with daughter in law, with a significant past medical history of CHF, who presents to the emergency department with shortness of breath for the past 3 weeks. The patient notes that recently arrived from [facility], where he was hospitalized due to CHF for 4 days. Upon discharged and improvement of symptoms the patient came back to the [facility]. He notes that he has not been taking his Lasix for the past 4 days because he ran out. He also notes that he experienced mild chest discomfort yesterday that resolved on its own. 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 The patient denies headache and dizziness. Denies fever, chills, nausea, vomit, diarrhea and constipation. Denies dysuria, frequency, urgency and hematuria. Allergies: None Past surgical history: Possible cardiac stents Social history: No alcohol, tobacco or drug use reported PMD - Dr. Vargas - Current Medication List Current Medications: Active Medications Acetaminophen (Tylenol -) 650 mg PO Q4H PRN PRN Reason: FEVER OR PAIN Aspirin (Asa -) 81 mg PO DAILY [facility] Last Admin: 10/13/16 08:28 Dose: 81 mg Atorvastatin Calcium (Lipitor -) 20 mg PO HS [facility] Last Admin: 10/12/16 21:47 Dose: 20 mg Carvedilol (Coreg -) 25 mg PO BID [facility] Last Admin: 10/13/16 08:29 Dose: 25 mg Clopidogrel Bisulfate (Plavix -) 75 mg PO DAILY [facility] Last Admin: 10/13/16 08:29 Dose: 75 mg Digoxin (Lanoxin -) 0.25 mg PO DAILY [facility] Last Admin: 10/13/16 08:29 Dose: 0.25 mg Furosemide (Lasix Injection -) 40 mg IVPUSH DAILY [facility] Last Admin: 10/12/16 09:25 Dose: 40 mg Heparin Sodium (Porcine) (Heparin -) 5,000 unit SQ TID [facility] Last Admin: 10/13/16 06:02 Dose: Not Given Ondansetron HCl (Zofran Injection) 4 mg IVPB Q6H PRN PRN Reason: NAUSEA Ramipril (Altace -) 10 mg PO BID [facility] Last Admin: 10/13/16 08:29 Dose: 10 mg Spironolactone (Aldactone -) 25 mg PO DAILY [facility] Last Admin: 10/13/16 08:29 Dose: 25 mg - Objective Vital Signs: Vital Signs Temperature 98.6 F 10/13/16 07:54 Pulse Rate 60 10/13/16 08:29 Respiratory Rate 20 10/13/16 07:54 Blood Pressure 104/78 10/13/16 07:54 O2 Sat by Pulse Oximetry (%) 97 10/13/16 07:54 Labs: CBC, BMP 10/11/16 05:35 10/12/16 05:35 INR, PTT INR 1.06 (0.82-1.09) 10/10/16 09:36 Problem List - Problems (1) Acute on chronic systolic (congestive) heart failure Assessment/Plan: Continue Coreg, Aldactone, lisinopril, digoxin, and furosemide. On ASA and clopidgrel. ECHO: severely dilated LV; severely reduced LVEF. Will require right and left-heart coronry angiogram, and evaluation for ICD. This wa discussed with pt and son; he was apparently told he would need this workup and therapy in the [place] weeks ago. Pt for transfer to [facility] today. Free T4 WNL; LDL elevated: statin. Code(s): I50.23 - ACUTE ON CHRONIC SYSTOLIC (CONGESTIVE) HEART FAILURE
== END 2016-10-13 09:15 | disposition short-term general hospital (02) | DRG 194 ==
LOC: JER 08:53 → JERBED 10:56 → J4W 14:13
PROVIDERS: ADMIT Internal Medicine; ATTEND Registered Nurse Emergency
DX: I11.0 Hypertensive heart disease with heart failure (principal); I50.23 Acute on chronic systolic (congestive) heart failure; I25.10 Atherosclerotic heart disease of native coronary artery without angina pectoris; Z95.5 Presence of coronary angioplasty implant and graft; I34.0 Nonrheumatic mitral (valve) insufficiency
CPT/HCPCS: 36415; 71020-TC; 80048; 80053; 80061; 80162; 82550; 83721; 83735; 83880; 84439; 84443; 84484; 85025; 85610; 90670; 93005; 93010; 93306-TC; 97116-GP; 97161-GP; 99284-25; G0008; G0009; J1644; Q2037

== ENCOUNTER 2016-10-23 16:24 | Emergency (ER) | payer OTHER ==
[2016-10-23 16:46] VITALS: TEMP 98.4; BMI 28.4
--- NOTE | 2016-10-23 16:58 | PDOC ---
History of Present Illness - General Chief Complaint: Urinary Problem Stated Complaint: URINARY PROBLEM/PAIN Time Seen by Provider: 10/23/16 16:57 History Source: Patient Exam Limitations: No Limitations - History of Present Illness Initial Comments: 10/23/16 16:58 CHIEF COMPLAINT: Urinary symptoms HISTORY OF PRESENT ILLNESS: This is a 76 year old male with a history of CHF, CAD s/p recent cath 10/13, hernia repair, and "prostate problems" (denies hx cancer, has not seen a urologist in this country) who presents with one week of urinary retention/sensation of inability to void completely, followed by new urinary incontinence today. He denies fevers/chills, dysuria, hematuria, or any other symptoms. He is also complaining of low back pain radiating down the right hip which has been progressive for 2-3 months. REVIEW OF SYSTEMS: GENERAL/CONSTITUTIONAL: No fever or chills. No weakness. No weight change. HEAD, EYES, EARS, NOSE AND THROAT: No change in vision. No ear pain or discharge. No sore throat. CARDIOVASCULAR: No chest pain or palpitations. RESPIRATORY: No cough, wheezing, or shortness of breath. GASTROINTESTINAL: No nausea, vomiting, diarrhea or constipation. GENITOURINARY: See HPI. MUSCULOSKELETAL: Low back pain radiating down right hip. SKIN: No rash or easy bruising. NEUROLOGIC: No headache, vertigo, loss of consciousness, or loss of sensation. PSYCHIATRIC: No depression or anxiety. ENDOCRINE: No increased thirst. No abnormal weight change. HEMATOLOGIC/LYMPHATIC: No anemia, easy bleeding, or history of blood clots. ALLERGIC/IMMUNOLOGIC: No hives or skin allergy. No latex allergy. PHYSICAL EXAM: GENERAL: The patient is awake, alert, and fully oriented, in no acute distress. HEAD: Normal with no signs of trauma. ENT: Pupils equal, round and reactive to light, extraocular movements intact, sclera anicteric, conjunctiva clear. Neck supple. LUNGS: Clear to auscultation bilaterally. Normal excursion. No respiratory distress or use of accessory muscles. CV: RRR, S1/S2, no MRG. Cap refill < 2 sec. ABDOMEN: Soft, non-distended, non-tender. No flank tenderness. EXTREMITIES: Normal range of motion, no edema. 5/5 upper and lower extremity strength bilaterally. NEUROLOGICAL: Normal speech, normal gait. CN II-XII grossly intact. No focal lumbar tenderness. No saddle anesthesia. PSYCH: Normal mood, normal affect. SKIN: Warm, dry, normal turgor, no rashes or lesions noted. Past History - Past Medical History Allergies/Adverse Reactions: Allergies Allergy/AdvReac Type Severity Reaction Status Date / Time No Known Allergies Allergy Verified 10/23/16 18:55 Home Medications: Ambulatory Orders Aspirin [ASA -] 81 mg PO DAILY 10/10/16 Atorvastatin Ca [Lipitor] 20 mg PO HS 10/10/16 Carvedilol 25 mg PO BID 10/10/16 Clopidogrel Bisulfate [Plavix -] 75 mg PO DAILY 10/10/16 Digoxin [Lanoxin -] 0.25 mg PO DAILY 10/10/16 Furosemide [Lasix] 40 mg PO DAILY 10/10/16 Ramipril 10 mg PO BID 10/10/16 Spironolactone [Aldactone -] 25 mg PO DAILY 10/10/16 Ramipril [Altace] 10 mg PO BID 10/13/16 Cyclobenzaprine HCl [Flexeril 10 mg] 10 mg PO TID PRN #60 tablet 10/23/16 Cardiac Disorders: Yes ("enlarged heart") - Surgical History Abdominal Surgery: Yes ("hernia?") - Psycho/Social/Smoking Cessation Hx Anxiety: No Suicidal Ideation: No Smoking History: Never smoked Have you smoked in the past 12 months: No If you are a former smoker, when did you quit?: 15 years ago Hx Alcohol Use: No Drug/Substance Use Hx: No Substance Use Type: None *Physical Exam - Vital Signs Last Vital Signs Temp Pulse Resp BP Pulse Ox 98.4 F 70 18 152/68 96 10/23/16 16:44 10/23/16 16:44 10/23/16 16:44 10/23/16 16:44 10/23/16 16:44 Medical Decision Making - Medical Decision Making 10/23/16 18:01 A/P: 76 year old male with urinary retention/incontinence. Also complaining of low back pain. -UA/culture -Pelvic/bladder u/s -Suspect symptoms are related to BPH, however with complaint of low back pain for >6 wks, will also obtain CT lumbar spine -Ibuprofen/Flexeril for back pain 10/23/16 18:28 -UA negative for infection -Pelvic u/s shows enlarged prostate, no urinary retention 10/23/16 19:27 CT shows small to moderate L5/S1 herniation with moderate canal stenosis. Will dc with pain control, urology followup, PCP followup. Return precautions reviewed. *DC/Admit/Observation/Transfer Diagnosis at time of Disposition: Urinary incontinence due to benign prostatic hyperplasia - Discharge Dispostion Disposition: HOME Condition at time of disposition: Stable Admit: No - Prescriptions Prescriptions: Cyclobenzaprine HCl [Flexeril 10 mg] 10 mg PO TID PRN #60 tablet PRN Reason: Back Pain - Referrals Referrals: Lisa Wright MD [Staff Physician] - Call tomorrow (Primary care) Johnathan Hsu MD., [Staff Physician] - (Call tomorrow) - Patient Instructions Printed Discharge Instructions: DI for Urinary Incontinence, DI for Benign Prostatic Hyperplasia Additional Instructions: -Follow up with urology for further evaluation (referral enclosed) -Return here for any new or concerning symptoms Print Language: BELARUSIAN
[2016-10-23 17:48] LABS: URINE APPEARANCE CLEAR; URINE BILIRUBIN NEGATIVE (NEGATIVE); URINE BLOOD NEGATIVE (NEGATIVE); URINE COLOR LTYELLOW; URINE GLUCOSE (UA) NEGATIVE (NEGATIVE); URINE KETONE NEGATIVE (NEGATIVE); URINE LEUK ESTERASE NEGATIVE (NEGATIVE); URINE NITRITE NEGATIVE (NEGATIVE); URINE PROTEIN NEGATIVE (NEGATIVE); URINE UROBILINOGEN NEGATIVE E.U./dl (0.2-1.0)
[2016-10-23] MEDS ORDERED: CYCLOBENZAPRINE HCL 10 MG TABLET (FP) PO ONE (17:59)
[2016-10-23] MEDS ORDERED: IBUPROFEN 400 MG TABLET (FP) PO ONE ×2 (17:59→18:04)
[2016-10-23] MEDS ORDERED: CYCLOBENZAPRINE HCL 10 MG TABLET (FP) ONE (18:03)
[2016-10-23 19:38] VITALS: BP 118/61; PULSE 56
== END 2016-10-23 19:40 | disposition home or self-care (01) ==
LOC: JER 16:24
DX: N40.1 Benign prostatic hyperplasia with lower urinary tract symptoms (principal); N39.498 Other specified urinary incontinence; I25.10 Atherosclerotic heart disease of native coronary artery without angina pectoris; I11.0 Hypertensive heart disease with heart failure; Z95.5 Presence of coronary angioplasty implant and graft
CPT/HCPCS: 72131-TC; 76856-TC; 81003; 87086; 99283-25

== ENCOUNTER 2016-12-20 13:14 | Observation (INO) | payer OTHER ==
[2016-12-20 13:26] VITALS: BMI 28.4
--- NOTE | 2016-12-20 14:35 | PDOC ---
History of Present Illness - General History Source: Patient Exam Limitations: No Limitations - History of Present Illness Initial Comments: 12/20/16 14:46 The patient is a 76 year old male, with a significant past medical history of CHF, CAD s/p recent cath, and hernia repair who presents to the emergency department with SOB and dizziness for about 20 days. The patient reports his baseline is about 1 flight of steps before the onset of SOB, but notes recently having worsening Orthopnea more frequently over the past months. Patient was recently admitted in 09/2016 presenting with similar symptoms, where he was transferred to [facility] for a cardiac cath. He denies any recent fevers, chills , or headache. He denies any recent nausea, vomit, diarrhea or constipation. He denies any recent chest pain. Allergies: NKA Past surgical history: None reported. Social History: Nonsmoker. Denies EtOH use and recreational drug use. Primary Care Physician: <Jeffery Morris - Last Filed: 12/20/16 15:07> <Sundar Kirk - Last Filed: 12/20/16 16:56> - General Chief Complaint: Chest Pain Stated Complaint: CHEST PAIN Time Seen by Provider: 12/20/16 14:24 Past History <Jeffery Morris - Last Filed: 12/20/16 15:07> - Past Medical History Cardiac Disorders: Yes ("enlarged heart") Hypercholesterolemia: Yes Other medical history: PROSTATE PROBLEMS - Surgical History Abdominal Surgery: Yes ("hernia?") Cholecystectomy: Yes - Psycho/Social/Smoking Cessation Hx Anxiety: No Suicidal Ideation: No Smoking History: Never smoked Have you smoked in the past 12 months: No If you are a former smoker, when did you quit?: 15 years ago Hx Alcohol Use: No Drug/Substance Use Hx: No Substance Use Type: None <Sundar Kirk - Last Filed: 12/20/16 16:56> - Past Medical History Allergies/Adverse Reactions: Allergies Allergy/AdvReac Type Severity Reaction Status Date / Time No Known Allergies Allergy Verified 12/20/16 13:26 Home Medications: Ambulatory Orders Aspirin [ASA -] 81 mg PO DAILY 10/10/16 Atorvastatin Ca [Lipitor] 20 mg PO HS 10/10/16 Carvedilol 25 mg PO BID 10/10/16 Clopidogrel Bisulfate [Plavix -] 75 mg PO DAILY 10/10/16 Digoxin [Lanoxin -] 0.25 mg PO DAILY 10/10/16 Furosemide [Lasix] 40 mg PO DAILY 10/10/16 Ramipril 10 mg PO BID 10/10/16 Spironolactone [Aldactone -] 25 mg PO DAILY 10/10/16 Ramipril [Altace] 10 mg PO BID 10/13/16 Cyclobenzaprine HCl [Flexeril 10 mg] 10 mg PO TID PRN #60 tablet 10/23/16 Review of Systems - Review of Systems Constitutional: No: Chills, Fever Respiratory: Yes: Orthopnea, SOB with Exertion. No: Cough Cardiac (ROS): No: Chest Pain, Edema, Palpitations ABD/GI: No: Vomiting All Other Systems: Reviewed and Negative <Sundar Kirk - Last Filed: 12/20/16 16:56> *Physical Exam - Vital Signs Last Vital Signs Temp Pulse Resp BP Pulse Ox 98.1 F 54 L 20 131/74 98 12/20/16 13:19 12/20/16 13:19 12/20/16 13:19 12/20/16 13:19 12/20/16 13:19 - Physical Exam Comments: 12/20/16 14:47 GENERAL: The patient is awake, alert, and fully oriented, in no acute distress. HEAD: Normal with no signs of trauma. EYES: Pupils equal, round and reactive to light, extraocular movements intact, sclera anicteric, conjunctiva clear with no pallor. ENT: Ears normal, nares patent, oropharynx clear without exudates. Moist mucous membranes. NECK: Normal range of motion, supple without lymphadenopathy, JVD, or masses. LUNGS: Slight crackles at the left base. Otherwise clear. HEART: Regular rate and rhythm, normal S1 and S2 without murmur or rub. ABDOMEN: Soft/nontender/nondistended. BS wnl. No guarding or rebound. No palpable masses. No hepatosplenomegaly. EXTREMITIES: Normal range of motion, no edema. No clubbing or cyanosis. No cords , erythema, or tenderness. NEUROLOGICAL: Cranial nerves II through XII grossly intact. Normal speech, normal gait. PSYCH: Normal mood, normal affect. SKIN: Warm, Dry, normal turgor, no rashes or lesions noted. <Jeffery Morris - Last Filed: 12/20/16 15:07> - Vital Signs Last Vital Signs Temp Pulse Resp BP Pulse Ox 98.1 F 54 L 20 131/74 98 12/20/16 13:19 12/20/16 13:19 12/20/16 13:19 12/20/16 13:19 12/20/16 13:19 <Sundar Kirk - Last Filed: 12/20/16 16:56> Heart Score/ECG Review #1 ECG reviewed & interpreted by me at: 13:23 General ECG Interpretation: Sinus Rhythm, Normal Rate (51), Normal Intervals ( qrs 144, biphasic T wave III/AVL, LVH), No acute ischemic changes Compared to previous ECG there are: No significant change (10/10/16) <Sundar Kirk - Last Filed: 12/20/16 16:56> ED Treatment Course - LABORATORY CBC & Chemistry Diagram: 12/20/16 16:10 12/20/16 16:10 <Sundar Kirk - Last Filed: 12/20/16 16:56> Medical Decision Making - Medical Decision Making 12/20/16 14:51 A portion of this note was documented by scribe services under my direction. I have reviewed the details of the note, within reason, and agree with the documentation with the following case summary and management plan written by me. 76-year-old male with history of high cholesterol, CAD with stents, CHF on Lasix who presents with weeks to months of worsening orthopnea and dyspnea on exertion, no chest pain as noted at triage. Patient states that over the last few days he has had increasing difficulty lying flat, requiring pillows to sleep. Slightly increased dyspnea on his otherwise baseline 1 flight of exercise tolerance. Denies any chest pain or pressure whatsoever, presents here for further evaluation. Reports compliance with his medications, including his Lasix. Previous admission was similar in September 2016, at that time he was transferred for cardiac catheter. Exam as noted. 76-year-old male with symptoms of mild CHF exacerbation over the last few weeks , no chest pain. 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 Overall, patient is not in acute respiratory distress, and could be a candidate for outpatient management with increased diuresis if workup permits 12/20/16 16:30 case d/w Dr. Jain, will see patient in ED and assist with dispo 12/20/16 16:48 CBC within normal limits. Seen by Dr. Jain, reviewed records. Patient had LAD stent placed after prior discharge, has baseline EF of 25% with mild MR , and has history of noncompliance. Given the extent of his cardiac disease, prefers diuresis in the hospital. We'll admit to telemetry, [facility] covering Dr. Garcia. 12/20/16 16:56 Accepted for obs tele by Dr. Leonard, signout given to Dr. Julio. Chem/trop/CXR pending, he will follow up. <Sundar Kirk - Last Filed: 12/20/16 16:56> *DC/Admit/Observation/Transfer - Attestations Scribe Attestion: 12/20/16 14:38 Documentation prepared by Jeffery Morris, acting as medical practitioners for Sundar Kirk MD. <Jeffery Morris - Last Filed: 12/20/16 15:07> - Discharge Dispostion Admit: Yes <Sundar Kirk - Last Filed: 12/20/16 16:56> Diagnosis at time of Disposition: CHF exacerbation Qualifiers: Congestive heart failure type: diastolic Qualified Code(s): I50.33 - Acute on chronic diastolic (congestive) heart failure CAD (coronary artery disease) Qualifiers: Coronary Disease-Associated Artery/Lesion type: unspecified vessel or lesion type [place] vs. transplanted heart: [place] heart Associated angina: angina presence unspecified Qualified Code(s): I25.10 - Atherosclerotic heart disease of [place] coronary artery without angina pectoris - Discharge Dispostion Condition at time of disposition: Fair - Referrals Referrals: Lisa Wright MD [Primary Care Provider] -
[2016-12-20 16:20] LABS: BASOPHIL 0.6 % (0-2.0); EOSINOPHIL 2.3 % (0-4.5); MCH 28.8 pg (25.7-33.7); MCHC 32.7 g/dl (32.0-35.9); MEAN PLT VOLUME 10.2 fl (7.5-11.1); NEUTROPHILS 54.9 % (42.8-82.8); PLATELET COUNT 143 K/MM3 (134-434); RDW 15.4 % (11.9-15.9); WHITE BLOOD COUNT 5.9 K/mm3 (4.0-10.0)
--- NOTE | 2016-12-20 16:41 | CON.CARD ---
Consult - History of Present Illness History of Present Illness: The patient is a 76 year old male, with a significant past medical history of CHF, CAD s/p recent cath, and hernia repair who presents to the emergency department with SOB and dizziness for about 20 days. The patient reports his baseline is about 1 flight of steps before the onset of SOB, but notes recently having worsening Orthopnea more frequently over the past months. Patient was recently admitted in 09/2016 presenting with similar symptoms, where he was transferred to [facility] for a cardiac cath. He denies any recent fevers, chills , or headache. He denies any recent nausea, vomit, diarrhea or constipation. He denies any recent chest pain. Allergies: NKA Past surgical history: None reported. Social History: Nonsmoker. Denies EtOH use and recreational drug use. Primary Care Physician: [facility] CHF low EF CAD s/p PCI LAD 10/16/16 HTN Hyperlipidemia Obesity Ongoing medical problems CHF low EF CAD s/p PCI LAD 10/16/16 HTN Hyperlipidemia Obesity BPH Thoracic aortic aneurysm - TAA - Past Medical History Cardio/Vascular: Yes: CAD, HTN - Alcohol/Substance Use Hx Alcohol Use: No - Smoking History Smoking history: Never smoked Have you smoked in the past 12 months: No If you are a former smoker, when did you quit?: 15 years ago Home Medications - Allergies Allergies/Adverse Reactions: Allergies Allergy/AdvReac Type Severity Reaction Status Date / Time No Known Allergies Allergy Verified 12/20/16 13:26 - Home Medications Home Medications: Ambulatory Orders Aspirin [ASA -] 81 mg PO DAILY 10/10/16 Atorvastatin Ca [Lipitor] 20 mg PO HS 10/10/16 Carvedilol 25 mg PO BID 10/10/16 Clopidogrel Bisulfate [Plavix -] 75 mg PO DAILY 10/10/16 Ramipril 10 mg PO BID 10/10/16 Spironolactone [Aldactone -] 25 mg PO DAILY 10/10/16 Ramipril [Altace] 10 mg PO BID 10/13/16 Cyclobenzaprine HCl [Flexeril 10 mg] 10 mg PO TID PRN #60 tablet 10/23/16 Review of Systems - Review of Systems Constitutional: reports: No Symptoms Eyes: reports: No Symptoms HENT: reports: No Symptoms Neck: reports: No Symptoms Cardiovascular: reports: No Symptoms Respiratory: reports: SOB Gastrointestinal: reports: No Symptoms Genitourinary: reports: No Symptoms Breasts: reports: No Symptoms Reported Musculoskeletal: reports: No Symptoms Integumentary: reports: No Symptoms Neurological: reports: No Symptoms Endocrine: reports: No Symptoms Hematology/Lymphatic: reports: No Symptoms Psychiatric: reports: No Symptoms Vital Signs: Vital Signs Temperature 98.1 F 12/20/16 13:19 Pulse Rate 54 L 12/20/16 13:19 Respiratory Rate 20 12/20/16 13:19 Blood Pressure 131/74 12/20/16 13:19 O2 Sat by Pulse Oximetry (%) 98 12/20/16 13:19 Constitutional: Yes: Well Nourished, No Distress, Calm Eyes: Yes: WNL, Conjunctiva Clear, EOM Intact HENT: Yes: WNL, Atraumatic, Normocephalic Neck: Yes: WNL, Supple, Trachea Midline Respiratory: Yes: WNL, Regular, CTA Bilaterally Gastrointestinal: Yes: WNL, Normal Bowel Sounds Renal/: Yes: WNL Cardiovascular: Yes: WNL, Regular Rate and Rhythm Musculoskeletal: Yes: WNL Extremities: Yes: WNL Integumentary: Yes: WNL Neurological: Yes: WNL, Alert, Oriented ...Motor Strength: WNL Psychiatric: Yes: WNL, Alert, Oriented - Other Data Labs, Other Data: CBC, BMP 12/20/16 16:10 Laboratory Tests 12/20/16 12/20/16 12/20/16 16:10 16:10 16:10 WBC 5.9 RBC 4.93 Hgb 14.2 Hct 43.4 MCV 88.0 MCHC 32.7 RDW 15.4 Plt Count 143 MPV 10.2 Neutrophils % 54.9 Lymphocytes % 35.7 D Monocytes % 6.5 Eosinophils % 2.3 Basophils % 0.6 INR 1.05 Sodium 142 Potassium 4.1 Chloride 105 Carbon Dioxide 26 Anion Gap 11 BUN 15 Creatinine 0.8 Creat Clearance w eGFR > 60 Random Glucose 88 Calcium 9.2 Magnesium 2.2 Total Bilirubin 0.7 D AST 17 ALT 30 D Alkaline Phosphatase 89 Creatine Kinase 58 Troponin I < 0.02 B-Natriuretic Peptide Total Protein 7.0 Albumin 3.7 Triglycerides Cholesterol Total LDL Cholesterol HDL Cholesterol Urine Color Urine Appearance Urine pH Ur Specific [place] Urine Protein Urine Glucose (UA) Urine Ketones Urine Blood Urine Nitrite Urine Bilirubin Urine Urobilinogen Ur Leukocyte Esterase Digoxin 12/20/16 12/20/16 12/21/16 16:10 23:30 05:35 WBC RBC Hgb Hct MCV MCHC RDW Plt Count MPV Neutrophils % Lymphocytes % Monocytes % Eosinophils % Basophils % INR Sodium Potassium Chloride Carbon Dioxide Anion Gap BUN Creatinine Creat Clearance w eGFR Random Glucose Calcium Magnesium Total Bilirubin AST ALT Alkaline Phosphatase Creatine Kinase 56 Troponin I < 0.02 B-Natriuretic Peptide 506.49 H Total Protein Albumin Triglycerides Cholesterol Total LDL Cholesterol HDL Cholesterol Urine Color Urine Appearance Urine pH Ur Specific [place] Urine Protein Urine Glucose (UA) Urine Ketones Urine Blood Urine Nitrite Urine Bilirubin Urine Urobilinogen Ur Leukocyte Esterase Digoxin 0.1511 L 12/21/16 12/21/16 12/21/16 05:35 06:30 06:35 WBC RBC Hgb Hct MCV MCHC RDW Plt Count MPV Neutrophils % Lymphocytes % Monocytes % Eosinophils % Basophils % INR Sodium Potassium Chloride Carbon Dioxide Anion Gap BUN Creatinine Creat Clearance w eGFR Random Glucose Calcium Magnesium Total Bilirubin AST ALT Alkaline Phosphatase Creatine Kinase Cancelled Troponin I Cancelled B-Natriuretic Peptide Total Protein Albumin Triglycerides Cancelled Cholesterol Cancelled Total LDL Cholesterol Cancelled HDL Cholesterol Cancelled Urine Color Ltyellow Urine Appearance Clear Urine pH 6.0 Ur Specific [place] 1.015 Urine Protein Negative Urine Glucose (UA) Negative Urine Ketones Negative Urine Blood Negative Urine Nitrite Negative Urine Bilirubin Negative Urine Urobilinogen Negative Ur Leukocyte Esterase Negative Digoxin Imaging - Results Chest X-ray: Image Reviewed EKG: Image Reviewed (sr rep abn) Problem List - Problems (1) CHF exacerbation Code(s): I50.9 - HEART FAILURE, UNSPECIFIED Qualifiers: Congestive heart failure type: diastolic Qualified Code(s): I50.33 - Acute on chronic diastolic (congestive) heart failure (2) Acute on chronic heart failure Code(s): I50.9 - HEART FAILURE, UNSPECIFIED (3) Acute on chronic systolic (congestive) heart failure Code(s): I50.23 - ACUTE ON CHRONIC SYSTOLIC (CONGESTIVE) HEART FAILURE (4) Urinary incontinence due to benign prostatic hyperplasia Code(s): N40.1 - BENIGN PROSTATIC HYPERPLASIA WITH LOWER URINARY TRACT SYMP N39.498 - OTHER SPECIFIED URINARY INCONTINENCE (5) CAD (coronary artery disease) Code(s): I25.10 - ATHSCL HEART DISEASE OF [place] CORONARY ARTERY W/O ANG PCTRS Qualifiers: Coronary Disease-Associated Artery/Lesion type: unspecified vessel or lesion type [place] vs. transplanted heart: [place] heart Associated angina: angina presence unspecified Qualified Code(s): I25.10 - Atherosclerotic heart disease of [place] coronary artery without angina pectoris Assessment/Plan Problems (1) CAD (coronary artery disease) Code(s): I25.10 - ATHSCL HEART DISEASE OF [place] CORONARY ARTERY W/O ANG PCTRS Qualifiers: Coronary Disease-Associated Artery/Lesion type: unspecified vessel or lesion type [place] vs. transplanted heart: [place] heart Associated angina: angina presence unspecified Qualified Code(s): I25.10 - Atherosclerotic heart disease of [place] coronary artery without angina pectoris (2) Acute on chronic systolic (congestive) heart failure Assessment/Plan: TNI < 0.02 x 2. EKG: sinus bradycardia; LVH. Telemetry: No arrhythmias or significant pauses; occasional APCs. Continue carvedilol, spironolactone, and ramipril. CXR: no acute pathology. No JVD or leg swelling. Discontinue digoxin Cont furosemide ( Continue clopidogrel and ASA (09/2016 LAD DEstent). Code(s): I50.23 - ACUTE ON CHRONIC SYSTOLIC (CONGESTIVE) HEART FAILURE (3) Urinary incontinence due to benign prostatic hyperplasia Code(s): N40.1 - BENIGN PROSTATIC HYPERPLASIA WITH LOWER URINARY TRACT SYMP N39.498 - OTHER SPECIFIED URINARY INCONTINENCE (4) HTN (hypertension) Code(s): I10 - ESSENTIAL (PRIMARY) HYPERTENSION
[2016-12-20 16:42] LABS: INR 1.05 (0.82-1.09); PROTHROMBIN TIME (PATIENT) 11.6 SEC (9.98-11.88)
[2016-12-20 16:56] LABS: ALBUMIN 3.7 g/dl (3.4-5.0); ANION GAP 11 (8-16); BILIRUBIN,TOTAL 0.7 mg/dL (0.2-1.0); CALCIUM 9.2 mg/dL (8.5-10.1); CO2 26 mmol/L (21-32); COCKROFT - GAULT 106.02; CREATININE 0.8 mg/dL (0.7-1.3); GLUCOSE,RANDOM 88 mg/dL (74-106); MAGNESIUM 2.2 mg/dL (1.8-2.4); SGOT/AST 17 U/L (15-37); SGPT/ALT 30 U/L (12-78)
[2016-12-20 16:59] LABS: ALK PHOS 89 U/L (45-117); TROPONIN I < 0.02 ng/ml (0.00-0.05)
[2016-12-20] MEDS ORDERED: CYCLOBENZAPRINE HCL 10 MG TABLET (FP) PO PRN (17:58)
[2016-12-20] MEDS ORDERED: FUROSEMIDE 40 MG TABLET (FP) ONE (18:17)
[2016-12-20] MEDS ORDERED: ASPIRIN 81 MG CHEWABLE TABLETS ONE (18:17)
[2016-12-20] MEDS ORDERED: DIGOXIN 0.25 MG TABLET (FP) ONE (18:17)
[2016-12-20] MEDS ORDERED: SPIRONOLACTONE 25 MG TABLET (FP) ONE (18:18)
[2016-12-20] MEDS ORDERED: CLOPIDOGREL BISULFATE 75 MG TABLET (FP) ONE (18:18)
[2016-12-20] MEDS: ASPIRIN 81 MG CHEWABLE TABLETS PO SCH (18:33)
[2016-12-20] MEDS: SPIRONOLACTONE 25 MG TABLET (FP) PO SCH (18:33)
[2016-12-20] MEDS: DIGOXIN 0.25 MG TABLET (FP) PO SCH (18:33)
[2016-12-20] MEDS: FUROSEMIDE 40 MG TABLET (FP) PO SCH (18:34)
[2016-12-20] MEDS: CLOPIDOGREL BISULFATE 75 MG TABLET (FP) PO SCH (18:34)
--- NOTE | 2016-12-20 18:35 | PN ---
Teaching Attending Note Name of Resident: Roni Julio ATTENDING PHYSICIAN STATEMENT I saw and evaluated the patient. I reviewed the resident's note and discussed the case with the resident. I agree with the resident's findings and plan as documented. SUBJECTIVE:76yo M c/o Dry eyes and mouth. has some mild dyspnea at night not related to walking but has improved since cardiac cath. similar symptoms on his last presentation in September 2016 where he was transferred out for cardiac cath with stent placement. stated his medications changed at that time which he has been compliant with. 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 states he sleeps on 2 pillows at night which he has since his cardiac cath. denies CP, fever, chills, N/V/C/D OBJECTIVE: Last Vital Signs Temp Pulse Resp BP Pulse Ox 98.1 F 64 17 133/72 99 12/20/16 13:19 12/20/16 18:21 12/20/16 18:21 12/20/16 18:21 12/20/16 18:21 General NAD CV S1 S2 RRR no murmur/rub/gallop Lungs CTA B/L no wheezing/rales/rhonchi Abdomen soft NT/ND Extremities no pedal edema ASSESSMENT AND PLAN: 76yo M with PMH CHF, CAD, HTN, TAA presented to the ER for dsypnea and was placed in observation 1. Acute on chronic systolic CHF- tele observation. clinically does not appear volume overloaded. BNP 500, as per ER notes fire and safety helper requested observation as his last presentation like this ended up with cardiac cath. will await his recommendations. cont home medications for now. continuous cardiac monitoring. trend cardiac markers Q6H. check digoxin level. cont home medications, coreg/ lasix/acei/spirolactone/digoxin. 2. CAD- no signs of CP, trend cardiac markers. cont asa/statin/acei/plavix 3. HTN- controlled. 4. DVT ppx- EAM
--- NOTE | 2016-12-20 18:44 | HP ---
CHIEF COMPLAINT: I have dry mouth and eyes and I can't sleep PCP: Traffic Reporter: Dr. Gonzalez HISTORY OF PRESENT ILLNESS: 76 yo [place] speaking only male with h/o systolic CHF EF 37.4% and CAD s/p cath in 09/2016 presented to the ED with dry mouth and eyes for 2 weeks. Information was obtained via [employer] (#[id number]). Patient stated that he last saw his lamp wirer 1 month ago and then he started having dryness in his mouth and eyes which disturbs his sleep significantly, which has prompted him to visit the ED. Patient attributes the symptom to side effect of his medications. He walked half block and used 4 pillows to sleep at night prior to cath. Now he can walk 4 blocks and uses 3 pillows. Although he still gets short of breath at times, he stated it's much less frequent and severe. He denies medication change , worsening shortness of breath, chest pain, head, n/v, abd pain, focal weakness , urinary or bowel symptoms. ER course was notable for: (1) vitals stable (2) all labs within normal limits (3) received IV lasix 40mg Recent Travel: Denies PAST MEDICAL HISTORY: CHF CAD PAST SURGICAL HISTORY: Cardiac stents Hernia repair Social History: Smoking: Quit smoking 15 years ago Alcohol: Denies Drugs: Denies Family History: Allergies No Known Allergies Allergy (Verified 12/20/16 13:26) HOME MEDICATIONS: Home Medications Medication Instructions Recorded Aspirin [ASA -] 81 mg PO DAILY 10/10/16 Atorvastatin Ca [Lipitor] 20 mg PO HS 10/10/16 Carvedilol 25 mg PO BID 10/10/16 Clopidogrel Bisulfate [Plavix -] 75 mg PO DAILY 10/10/16 Digoxin [Lanoxin -] 0.25 mg PO DAILY 10/10/16 Furosemide [Lasix] 40 mg PO DAILY 10/10/16 Ramipril 10 mg PO BID 10/10/16 Spironolactone [Aldactone -] 25 mg PO DAILY 10/10/16 Ramipril [Altace] 10 mg PO BID 10/13/16 Cyclobenzaprine HCl [Flexeril 10 10 mg PO TID PRN #60 tablet 10/23/16 mg] REVIEW OF SYSTEMS CONSTITUTIONAL: insomnia Absent: fever, chills, diaphoresis, generalized weakness, malaise, loss of appetite, weight change HEENT: dry mouth, dry ear Absent: rhinorrhea, nasal congestion, throat pain, throat swelling, difficulty swallowing, mouth swelling, ear pain, eye pain, visual changes CARDIOVASCULAR: Absent: chest pain, syncope, palpitations, irregular heart rate, lightheadedness , peripheral edema RESPIRATORY: Absent: cough, shortness of breath, dyspnea with exertion, orthopnea, wheezing, stridor, hemoptysis GASTROINTESTINAL: Absent: abdominal pain, abdominal distension, nausea, vomiting, diarrhea, constipation, melena, hematochezia GENITOURINARY: Absent: dysuria, frequency, urgency, hesitancy, hematuria, flank pain, genital pain MUSCULOSKELETAL: Absent: myalgia, arthralgia, joint swelling, back pain, neck pain SKIN: Absent: rash, itching, pallor HEMATOLOGIC/IMMUNOLOGIC: Absent: easy bleeding, easy bruising, lymphadenopathy, frequent infections ENDOCRINE: Absent: unexplained weight gain, unexplained weight loss, heat intolerance, cold intolerance NEUROLOGIC: Absent: headache, focal weakness or paresthesias, dizziness, unsteady gait, seizure, mental status changes, bladder or bowel incontinence PSYCHIATRIC: Absent: anxiety, depression, suicidal or homicidal ideation, hallucinations. PHYSICAL EXAMINATION Last Vital Signs Temp Pulse Resp BP Pulse Ox 98.1 F 64 17 133/72 99 12/20/16 13:19 12/20/16 18:21 12/20/16 18:21 12/20/16 18:21 12/20/16 18:21 GENERAL: AAO x 3, in no acute distress, able to speak full sentences, look appropriate to stated age HEAD: NC, AT EYES: PERRLA, sclera anicteric, conjunctiva clear EARS, NOSE, THROAT: oropharynx clear without exudates. Moist mucous membranes. NECK: supple without lymphadenopathy, JVD LUNGS: CTAB HEART: RRR, normal S1 and S2 without murmur, rub or gallop. ABDOMEN: Soft, nontender, not distended, normoactive bowel sounds, no guarding, no rebound, no masses. EXTREMITIES: 2+ pulses, warm, well-perfused. No calf tenderness. No peripheral edema. SKIN: no rashes or lesions noted, normal capillary refill. CBCD WBC 5.9 K/mm3 (4.0-10.0) 12/20/16 16:10 RBC 4.93 M/mm3 (4.00-5.60) 12/20/16 16:10 Hgb 14.2 GM/dL (11.7-16.9) 12/20/16 16:10 Hct 43.4 % (35.4-49) 12/20/16 16:10 MCV 88.0 fl (80-96) 12/20/16 16:10 MCHC 32.7 g/dl (32.0-35.9) 12/20/16 16:10 RDW 15.4 % (11.9-15.9) 12/20/16 16:10 Plt Count 143 K/MM3 (134-434) 12/20/16 16:10 MPV 10.2 fl (7.5-11.1) 12/20/16 16:10 CMP Sodium 142 mmol/L (136-145) 12/20/16 16:10 Potassium 4.1 mmol/L (3.5-5.1) 12/20/16 16:10 Chloride 105 mmol/L (98-107) 12/20/16 16:10 Carbon Dioxide 26 mmol/L (21-32) 12/20/16 16:10 Anion Gap 11 (8-16) 12/20/16 16:10 BUN 15 mg/dL (7-18) 12/20/16 16:10 Creatinine 0.8 mg/dL (0.7-1.3) 12/20/16 16:10 Creat Clearance w eGFR > 60 (>60) 12/20/16 16:10 Calcium 9.2 mg/dL (8.5-10.1) 12/20/16 16:10 Total Bilirubin 0.7 mg/dL (0.2-1.0) D 12/20/16 16:10 AST 17 U/L (15-37) 12/20/16 16:10 ALT 30 U/L (12-78) D 12/20/16 16:10 Alkaline Phosphatase 89 U/L (45-117) 12/20/16 16:10 Total Protein 7.0 g/dl (6.4-8.2) 12/20/16 16:10 Albumin 3.7 g/dl (3.4-5.0) 12/20/16 16:10 IMAGING ECG on 12/20: NSR, no change compared to prior ASSESSMENT/PLAN: 76 yo [place] speaking only male with h/o systolic CHF EF 37.4% and CAD s/p cath in 09/2016 admitted to observation for dehydration. Dehydration - Likely 2/2 over diuresis - Clinically euvolemic - Cardiology onboard Acute on chronic CHF, systolic - Not in exacerbation clinically - Mildly elevated BNP - f/u CXR - Received Lasix IV 40mg in ED - Daily weight, I&O - Continue Coreg, Ramipril, Aldactone, Digoxin, lasix h/o CAD s/p cardiac cath - Cont. plavix and asa FEN - IVF not indicated - Lytes normal - Sodium controlled diet Prophylaxis - DVT: SCDs - GI: not indicated Disposition - D/C tomorrow Code status - Full code Visit type - Emergency Visit Emergency Visit: Yes ED Registration Date: 12/20/16 Care time: The patient presented to the Emergency Department on the above date and was hospitalized for further evaluation of their emergent condition. - New Patient This patient is new to me today: Yes Date on this admission: 12/20/16 - Critical Care Critical Care patient: No
[2016-12-20] MEDS ORDERED: PATIENT'S OWN MEDICATION (NON-FORMULARY) (Ramipril [Ramipril] 10 MG) PO SCH (22:00)
[2016-12-20] MEDS ORDERED: ATORVASTATIN CA 20 MG TABLET (FP) PO SCH (22:00)
[2016-12-20] MEDS: RAMIPRIL 5 MG CAPSULE (FP) PO SCH (23:24)
[2016-12-20] MEDS: CARVEDILOL 25 MG TABLET (FP) PO SCH (23:24)
[2016-12-21 01:26] LABS: TROPONIN I < 0.02 ng/ml (0.00-0.05)
[2016-12-21 07:00] LABS: URINE APPEARANCE CLEAR; URINE BILIRUBIN NEGATIVE (NEGATIVE); URINE BLOOD NEGATIVE (NEGATIVE); URINE COLOR LTYELLOW; URINE GLUCOSE (UA) NEGATIVE (NEGATIVE); URINE KETONE NEGATIVE (NEGATIVE); URINE LEUK ESTERASE NEGATIVE (NEGATIVE); URINE NITRITE NEGATIVE (NEGATIVE); URINE PROTEIN NEGATIVE (NEGATIVE); URINE UROBILINOGEN NEGATIVE E.U./dl (0.2-1.0)
[2016-12-21 07:57] LABS: DIGOXIN LEVEL 0.1511 ng/ml (0.8-2.0)
[2016-12-21 09:48] VITALS: BP 119/67; PULSE 63; TEMP 98.2
[2016-12-21] MEDS: CARVEDILOL 25 MG TABLET (FP) PO SCH (09:49)
[2016-12-21] MEDS: DIGOXIN 0.25 MG TABLET (FP) PO SCH (09:49)
[2016-12-21] MEDS: FUROSEMIDE 40 MG TABLET (FP) PO SCH (09:49)
[2016-12-21] MEDS: ASPIRIN 81 MG CHEWABLE TABLETS PO SCH (09:49)
[2016-12-21] MEDS: CLOPIDOGREL BISULFATE 75 MG TABLET (FP) PO SCH (09:49)
[2016-12-21] MEDS: SPIRONOLACTONE 25 MG TABLET (FP) PO SCH (09:49)
[2016-12-21] MEDS: RAMIPRIL 5 MG CAPSULE (FP) PO SCH (09:49)
--- NOTE | 2016-12-21 11:01 | PN ---
Progress Note, Physician Chief Complaint: Pt A&Ox3; OOB in chair; Asymptomatic. History of Present Illness: The patient is a 76 year old male (b. [place]), with a significant past medical history of systolic CHF, CAD s/p recent cath (LAD on 09/2016 at [facility]), and hernia repair who presents to the emergency department with SOB and dizziness for about 20 days. The patient reports his baseline is about 1 flight of steps before the onset of SOB, but notes recently having worsening Orthopnea more frequently over the past months. Patient was recently admitted in 09/2016 presenting with similar symptoms, where he was transferred to [facility] for a cardiac cath. He denies any recent fevers, chills, or headache. He denies any recent nausea, vomit, diarrhea or constipation. He denies any recent chest pain. Allergies: NKA Past surgical history: None reported. Social History: Nonsmoker. Denies EtOH use and recreational drug use. Primary Care Physician: - Current Medication List Current Medications: Active Medications Aspirin (Asa -) 81 mg PO DAILY [facility] Last Admin: 12/21/16 09:49 Dose: 81 mg Atorvastatin Calcium (Lipitor -) 20 mg PO HS [facility] Last Admin: 12/20/16 23:24 Dose: 20 mg Carvedilol (Coreg -) 25 mg PO BID [facility] Last Admin: 12/21/16 09:49 Dose: 25 mg Clopidogrel Bisulfate (Plavix -) 75 mg PO DAILY [facility] Last Admin: 12/21/16 09:49 Dose: 75 mg Cyclobenzaprine HCl (Flexeril -) 10 mg PO TID PRN PRN Reason: BACK PAIN Digoxin (Lanoxin -) 0.25 mg PO DAILY [facility] Last Admin: 12/21/16 09:49 Dose: 0.25 mg Furosemide (Lasix -) 40 mg PO DAILY [facility] Last Admin: 12/21/16 09:49 Dose: 40 mg Ramipril (Altace -) 10 mg PO BID [facility] Last Admin: 12/21/16 09:49 Dose: 10 mg Spironolactone (Aldactone -) 25 mg PO DAILY [facility] Last Admin: 12/21/16 09:49 Dose: 25 mg - Objective Vital Signs: Vital Signs Temperature 98.2 F 12/21/16 09:48 Pulse Rate 63 12/21/16 09:49 Respiratory Rate 17 12/21/16 09:48 Blood Pressure 119/67 12/21/16 09:48 O2 Sat by Pulse Oximetry (%) 99 12/21/16 05:07 Labs: INR, PTT INR 1.05 (0.82-1.09) 12/20/16 16:10 Problem List - Problems (1) CAD (coronary artery disease) Code(s): I25.10 - ATHSCL HEART DISEASE OF [place] CORONARY ARTERY W/O ANG PCTRS Qualifiers: Coronary Disease-Associated Artery/Lesion type: unspecified vessel or lesion type [place] vs. transplanted heart: [place] heart Associated angina: angina presence unspecified Qualified Code(s): I25.10 - Atherosclerotic heart disease of [place] coronary artery without angina pectoris (2) Acute on chronic systolic (congestive) heart failure Assessment/Plan: TNI < 0.02 x 2. EKG: sinus bradycardia; LVH. Telemetry: No arrhythmias or significant pauses; occasional APCs. Continue carvedilol, spironolactone, and ramipril. CXR: no acute pathology. No JVD or leg swelling. Discontinue digoxin and furosemide (no evidence of acute CHF; appear euvolemic). Continue clopidogrel and ASA (09/2016 LAD DEstent). Pt may be followed from cardiac standpoint as an outpatient. Code(s): I50.23 - ACUTE ON CHRONIC SYSTOLIC (CONGESTIVE) HEART FAILURE (3) Urinary incontinence due to benign prostatic hyperplasia Code(s): N40.1 - BENIGN PROSTATIC HYPERPLASIA WITH LOWER URINARY TRACT SYMP N39.498 - OTHER SPECIFIED URINARY INCONTINENCE (4) HTN (hypertension) Code(s): I10 - ESSENTIAL (PRIMARY) HYPERTENSION
--- NOTE | 2016-12-21 11:46 | DS ---
Physical Exam: SUBJECTIVE: Patient seen and examined at beside. No acute event overnight per patient and on lunchroom monitor. Denies chest pain, sob, palpitations, dizziness, headache, fever, chills, n/v. OBJECTIVE: Vital Signs Period Temp Pulse Resp BP Sys/[place] Pulse Ox Last 24 Hr 97.7 F-98.2 F 54-64 17-18 99-133/59-75 98-99 PHYSICAL EXAM GENERAL: AAO x 3, in no acute distress, able to speak full sentences, look appropriate to stated age HEAD: NC, AT EYES: PERRLA, sclera anicteric, conjunctiva clear EARS, NOSE, THROAT: oropharynx clear without exudates. Moist mucous membranes. NECK: supple without lymphadenopathy, JVD LUNGS: CTAB HEART: RRR, normal S1 and S2 without murmur, rub or gallop. ABDOMEN: Soft, nontender, not distended, normoactive bowel sounds, no guarding, no rebound, no masses. EXTREMITIES: 2+ pulses, warm, well-perfused. No calf tenderness. No peripheral edema. SKIN: no rashes or lesions noted, normal capillary refill. LABS Laboratory Results - last 24 hr 12/20/16 12/21/16 12/21/16 23:30 05:35 05:35 Creatine Kinase 56 Troponin I < 0.02 Triglycerides Cancelled Cholesterol Cancelled Total LDL Cholesterol Cancelled HDL Cholesterol Cancelled Urine Color Urine Appearance Urine pH Urine Protein Urine Glucose (UA) Urine Ketones Urine Blood Urine Nitrite Urine Bilirubin Urine Urobilinogen Ur Leukocyte Esterase Digoxin 0.1511 L 12/21/16 12/21/16 06:30 06:35 Creatine Kinase Cancelled Troponin I Cancelled Triglycerides Cholesterol Total LDL Cholesterol HDL Cholesterol Urine Color Ltyellow Urine Appearance Clear Urine pH 6.0 Urine Protein Negative Urine Glucose (UA) Negative Urine Ketones Negative Urine Blood Negative Urine Nitrite Negative Urine Bilirubin Negative Urine Urobilinogen Negative Ur Leukocyte Esterase Negative Digoxin HOSPITAL COURSE: Date of Admission:12/20/16 76 yo [place] speaking only male with h/o systolic CHF EF 37.4% and CAD s/p cath in 09/2016 admitted to observation for suspected acute on chronic CHF and dehydration. Patient appears clinically euvolemic but his symptoms of dry mouth and eyes are likely secondary over diuresis from medications. He also appears not in CHF exacerbation clinically. troponin negative x 2 and CXR is negative for effusion or any acute pathology. EKG also shows no change compared to prior. Cleared by cardiology to be discharged. Patient was instructed to stop taking lasix and digoxin unless told by operator engineer otherwise and follow up with operator engineer within a week. Date of Discharge: 12/21/16 Minutes to complete discharge: 35 Discharge Summary Reason For Visit: ACUTE ON CHRONIC CONGESTIVE HEART FAILURE Current Active Problems CAD (coronary artery disease) (Chronic) HTN (hypertension) (Chronic) Condition: Stable - Instructions Diet, Activity, Other Instructions: Instruction for continuing care: You were admitted to the hospital for observation because your heart doctor was concerned with your heart condition. All lab works and imaging are negative for any acute and active heart problem and you have not been in any cardiopulmonary distress. You are now in stable condition to be discharged home. YOUR DIGOXIN AND LASIX ARE DISCONTINUED. Please DO NOT take them any more unless your heart doctor tells you otherwise. Please follow up with Dr. Gonzalez within a week to review the management of your heart condition. Referrals: Roni Gonzalez MD [Staff Physician] - Lisa Wright MD [Primary Care Provider] - Glendy Leonard MD [Staff Physician] - Disposition: HOME - Home Medications Comprehensive Discharge Medication List: Ambulatory Orders Aspirin [ASA -] 81 mg PO DAILY 10/10/16 Atorvastatin Ca [Lipitor] 20 mg PO HS 10/10/16 Carvedilol 25 mg PO BID 10/10/16 Clopidogrel Bisulfate [Plavix -] 75 mg PO DAILY 10/10/16 Ramipril 10 mg PO BID 10/10/16 Spironolactone [Aldactone -] 25 mg PO DAILY 10/10/16 Ramipril [Altace] 10 mg PO BID 10/13/16 Cyclobenzaprine HCl [Flexeril 10 mg] 10 mg PO TID PRN #60 tablet 10/23/16 This patient is new to me today: No Emergency Visit: No Critical Care patient: No - Discharge Referral Referred to [facility] No
--- NOTE | 2016-12-21 11:50 | PN ---
Teaching Attending Note Name of Resident: Roni Julio ATTENDING PHYSICIAN STATEMENT I saw and evaluated the patient. I reviewed the resident's note and discussed the case with the resident. I agree with the resident's findings and plan as documented. SUBJECTIVE:continues to have dry eyes/mouth. no SOB or CP since presentation. Denies Cp,SOB, Fever, chills, N/V/C/D OBJECTIVE: Last Vital Signs Temp Pulse Resp BP Pulse Ox 98.2 F 63 17 119/67 98 12/21/16 09:48 12/21/16 09:49 12/21/16 09:48 12/21/16 09:48 12/21/16 09:45 General NAD CV S1 S2 RRR no murmur/rub/gallop Lungs CTA B/L no wheezing/rales/rhonchi Abdomen soft NT/ND Extremities no pedal edema ASSESSMENT AND PLAN: 76yo M with PMH CHF, CAD, HTN, TAA presented to the ER for dsypnea and was placed in observation 1. 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 cardiac markers neg x2. evaluated by cardio and d/c digoxin and lasix. can follow up with cardio as outpatient. coreg/acei/spirolactone 2. CAD- no signs of CP, trend cardiac markers. cont asa/statin/acei/plavix 3. HTN- controlled. 4. DVT ppx- EAM 5. d/c home
[2016-12-21 14:52] LABS: CHOLESTEROL 161 mg/dL (50-200); LDL CHOLESTEROL (ONLY SJRH) 109 mg/dL (5-100)
[2016-12-21 14:55] LABS: TROPONIN I < 0.02 ng/ml (0.00-0.05)
--- NOTE | 2016-12-21 16:29 | EKG ---
Test Reason : Blood Pressure : / mmHG Vent. Rate : 051 BPM Atrial Rate : 051 BPM P-R Int : 202 ms QRS Dur : 144 ms QT Int : 440 ms P-R-T Axes : 047 -60 -16 degrees QTc Int : 405 ms SINUS BRADYCARDIA LEFT AXIS DEVIATION LEFT VENTRICULAR HYPERTROPHY WITH QRS WIDENING ABNORMAL ECG WHEN COMPARED WITH ECG OF 10-OCT-2016 09:48, PREMATURE VENTRICULAR COMPLEXES ARE NO LONGER PRESENT T WAVE INVERSION NOW EVIDENT IN INFERIOR LEADS T WAVE INVERSION NO LONGER EVIDENT IN LATERAL LEADS QT HAS SHORTENED Confirmed by JORGE LUIS MOTT, CAROLYN ([id number]) on 12/21/2016 4:29:44 PM Referred By: Confirmed By:CAROLYN KANG MD
== END 2016-12-21 12:20 | disposition home or self-care (01) ==
LOC: JER 13:14 → JERBED 16:56 → J4S 21:18
PROVIDERS: ADMIT Internal Medicine; ATTEND Internal Medicine
DX: I50.33 Acute on chronic diastolic (congestive) heart failure (principal); I25.10 Atherosclerotic heart disease of native coronary artery without angina pectoris; I50.23 Acute on chronic systolic (congestive) heart failure; N40.1 Benign prostatic hyperplasia with lower urinary tract symptoms; N39.498 Other specified urinary incontinence; E78.5 Hyperlipidemia, unspecified; Z98.61 Coronary angioplasty status; Z79.82 Long term (current) use of aspirin; E86.0 Dehydration
CPT/HCPCS: 36415; 71020-TC; 80053; 80061; 80162; 81003; 82550; 83721; 83735; 83880; 84484; 85025; 85610; 93005; 93010; 99285-25; G0378